=== PATIENT | female | born 1955 | race Caucasian/White ===

== ENCOUNTER 2019-09-22 19:58 | Inpatient (IN) | payer MEDICAID, SELFPAY ==
[~2019-09-22] VITALS: Ht 152.4 cm; Wt 65.3 kg
[2019-09-22 20:02] VITALS: BP 112/77
--- NOTE | 2019-09-22 20:05 | NUR ---
PT AMBULATED TO BED 12 WITH CANE
--- NOTE | 2019-09-22 20:30 | NUR ---
63 YEAR OLD FEMALE COMPLAINS OF POSSIBLE UTI. PER PATIENT SHE HAS HAD VAGINAL ITCHING, ODOR, AND FOAMY URINE X 2 WEEKS. PATIENT DENIES ANY PAIN. PATIENT AOX4, BREATHING EVEN AND UNLABORED, SKIN WARM AND DRY. PATIENT DENIES N/V/D OR ANY OTHER COMPLAINTS. BED IN LOWEST POSITION, LOCKED, BED RAIL UPX1. ERMD MADE AWARE PMH - DM2 ALLERGIES - NKA
[2019-09-22 21:03] LABS: HEMATOCRIT 33.7 % (36-48); HEMOGLOBIN 10.8 g/dL (12.0-16.0); MEAN CORPUSCULAR HEMOGLOBIN 29 pg (27-31); MEAN CORPUSCULAR HGB CONC 32 g/dL (33-37); MEAN CORPUSCULAR VOLUME 90.2 fL (80-94); PLATELET COUNT (AUTO) 399 K/uL (140-450); RED BLOOD CELL COUNT(AUTO) 3.74 MIL/uL (4.20-5.40); RED CELL DISTRIBUTION WIDTH 14.1 % (11.6-13.7)
[2019-09-22 21:10] LABS: APPEARANCE,URINE HAZY (CLEAR); BILIRUBIN,URINE NEGATIVE (NEGATIVE); BLOOD, URINE 2+ (NEGATIVE); COLOR,URINE YELLOW (YELLOW); LEUKOCYTE ESTERASE ,URINE TRACE (NEGATIVE); NITRITE, URINE POSITIVE (NEGATIVE); UGLUCOSE 3+ (NEGATIVE)
[2019-09-22 21:13] LABS: RBC,URINE 20-50 /HPF (0-5)
[2019-09-22] MEDS ORDERED: BACITRACIN OINT 500 UNITS/GM PKT TP ONE (21:15)
--- NOTE | 2019-09-22 21:18 | NUR ---
PATIENT ALERT AND AWAKE, BREATHING EVEN AND UNLABORED
[2019-09-22 21:21] LABS: ALBUMIN 1.7 g/dL (3.4-5.0); ANION GAP 12.5 (8-16); CARBON DIOXIDE 26.7 mmol/L (21-32); CREATININE 2.3 mg/dL (0.6-1.3); POTASSIUM 4.2 mmol/L (3.5-5.1); TOTAL BILIRUBIN 0.4 mg/dL (0.0-1.0)
[2019-09-22] MEDS ORDERED: NACL 0.9% 1,000 ML IV SCH (21:29)
[2019-09-22 21:51] LABS: LYMPHOCYTES % (MANUAL) 8 % (20-46); MONOCYTES % (MANUAL) 2 % (5-12)
[2019-09-22] MEDS ORDERED: cefTRIAXone 1,000 MG VIAL ONE (22:01)
[2019-09-22] MEDS ORDERED: cefTRIAXone 1,000 MG in DEXT 5% MINI-BAG PLUS 50 ML IV ONE (22:20)
--- NOTE | 2019-09-22 23:00 | NUR ---
PATIENT ALERT AND AWAKE, BREATHING EVEN AND UNLABORED. FIXED ARM POSITION SO IV SALINE WILL CONTINUE TO FLOW.
--- NOTE | 2019-09-23 00:06 | NUR ---
PATIENT ALERT AND AWAKE, BREATHING EVEN AND UNLABORED. WALKED TO BATHROOM WITH CANE EVEN AND STEADY GAIT.
[2019-09-23] MEDS ORDERED: VITAMIN D PO (00:24)
[2019-09-23] MEDS ORDERED: DULO20EC PO (00:24)
[2019-09-23] MEDS ORDERED: GABA100C PO (00:24)
[2019-09-23] MEDS ORDERED: ASPI-1884 PO (00:24)
[2019-09-23] MEDS ORDERED: HYDR-5092 PO (00:24)
[2019-09-23] MEDS ORDERED: QUET100T PO (00:24)
[2019-09-23] MEDS ORDERED: LAM25 PO (00:24)
--- NOTE | 2019-09-23 00:25 | NUR ---
CORONAVIRUS SWAB TAKEN
--- NOTE | 2019-09-23 00:44 | NUR ---
Gay boggs in ED - 09/23/19 at 0045 by [email or web address] PATIENT ALERT AND AWAKE, BREATHING EVEN AND UNLABORED. NACL FLUIDS 700ML GIVEN, ARM FIXED TO CORRECT IV FLUIDS TO KEEP GOING
--- NOTE | 2019-09-23 00:44 | NUR ---
PATIENT ALERT AND AWAKE, BREATHING EVEN AND UNLABORED. NACL FLUIDS 700ML GIVEN, ARM FIXED TO CORRECT IV FLUIDS TO KEEP GOING
[2019-09-23] MEDS: NACL 0.9% 1,000 ML IV SCH ×3 (00:54→20:54)
[2019-09-23] MEDS ORDERED: ONDANSETRON 4 MG/2 ML VIAL IVP PRN (00:55)
[2019-09-23] MEDS ORDERED: HYDROcodone/APAP 7.5/325 MG 1 TAB PO PRN (00:55)
[2019-09-23] MEDS ORDERED: DEXTROSE 50% 50 ML SYR IVP PRN (00:55)
[2019-09-23] MEDS ORDERED: ACETAMINOPHEN 325 MG TAB PO PRN (00:55)
--- NOTE | 2019-09-23 01:00 | NUR ---
PT WAS BROUGHT UP BY KATHY AND AMBULATED FORM KATHY TO BED IN ROOM 114. PT IS AOX3 WITH SKI INTACT, SHE IS ABLE TO AMBULATE BY USING HIS CANE . PT HAS A 22 G ON LEFT AC INTACT AND RUNNING A BOLUS FROM ER. PT RECEIVED ROCEPHIN AND STARTED A BOLUS OF FLUID. PT FINGERSTICK WAS OVER 700. PT DENIES PAIN AT THIS TIME. SHE WAS PLACED ON A FALLS RISK AND ON DROPLET PRECAUTIONS FOR R/O COVID 19.
--- NOTE | 2019-09-23 01:24 | NUR ---
PATIENT ALERT AND AWAKE, BREATHING EVEN AND UNLABORED. ADMITTED DR AT BEDSIDE
--- NOTE | 2019-09-23 01:30 | NUR ---
PT V/S FOLLOWS; T 97.6 P 71 R 18 B/P 105/73 02 92% ON ROOM AIR. PT HAS NO S/S OF PAIN OR DISTRESS NOTED. ALL FALLS AND DROPLET PRECAUTIONS IN PLACE.
--- NOTE | 2019-09-23 01:40 | NUR ---
Patient will be admitted to care of DR ROGERS. Admited to TELE. Will go to room 114. Belongings list completed. Report to YOEL ZELAYA.
[2019-09-23 01:43] LABS: PROTHROMBIN TIME 10.1 secs (10.8-13.4)
[2019-09-23 01:54] LABS: PHOSPHORUS 3.4 mg/dL (2.5-4.9); THYROID STIMULATING HORMONE 0.24 uIU/mL (0.34-3.74)
[2019-09-23] MEDS ORDERED: cefTRIAXone 1,000 MG VIAL ONE (03:17)
--- NOTE | 2019-09-23 03:30 | NUR ---
MD CAREY ORDERED A HUMULIN R DUE TO PT NOT RECEIVING ANY INSULIN IN ER. PT RECEIVED 20 UNITS HUMULIN R ORDERED VIA SQ.PT CURRENTLY RUNNING NORMAL SALINE AT 100MLS/HR. PT HAS NO C/O OF PAIN VOICED ADMISSION STRIP IS NSR.
[2019-09-23] MEDS ORDERED: INSULIN REGULAR, HUMAN 100 UNIT/ML VIAL SUBQ ONE (03:40)
[2019-09-23 04:00] VITALS: BP 104/62
[2019-09-23 04:30] VITALS: BP 105/73
--- NOTE | 2019-09-23 04:30 | NUR ---
PT IN BED NO S/S OF PAIN OR DISTRESS NOTED. V/S FOLLOWS: T 98.0 P 82 R 20 B/P 98/60 02 94% ON ROOM AIR. NORMAL SALINE RUNNING AT 100MLS/HR. ALL FALLS AND DROPLET PRECAUTIONS IN PLACE.
[2019-09-23] MEDS: INSULIN LISPRO SLIDING SCALE 100 UNITS/ML VIAL SUBQ PRN ×4 (06:30→21:37)
--- NOTE | 2019-09-23 06:30 | NUR ---
LAB DRAWS AT BEDSIDE, FINGERSTICK RETAKEN AND IT IS 248, SHE WAS GIVEN 4 UNITS OF HUMALOG PER SLIDING SCALE. SON MERI CALLED AND WAS UPDATED WITH PATENT'S PERMISSION.
[2019-09-23 06:51] LABS: BASOPHILS # (AUTO) 0.1 K/uL (0.00-0.22); BASOPHILS % (AUTO) 0.4 % (0.0-2.0); EOSINOPHILS # (AUTO) 0.2 K/uL (0-0.4); EOSINOPHILS % (AUTO) 1.1 % (0.0-4.0); HEMATOCRIT 32.6 % (36-48); HEMOGLOBIN 10.6 g/dL (12.0-16.0); LYMPHOCYTES # (AUTO) 1.5 K/uL (2.5-16.5); LYMPHOCYTES % (AUTO) 10.4 % (20.5-51.1); MEAN CORPUSCULAR HEMOGLOBIN 28 pg (27-31); MEAN CORPUSCULAR HGB CONC 33 g/dL (33-37); MONOCYTES # (AUTO) 0.6 K/uL (0.8-1.0); MONOCYTES % (AUTO) 3.9 % (1.7-9.3); NEUTROPHILS # (AUTO) 12.2 K/uL (1.8-7.7); NEUTROPHILS % (AUTO) 84.2 % (42.2-75.2); PLATELET COUNT (AUTO) 404 K/uL (140-450); RED BLOOD CELL COUNT(AUTO) 3.74 MIL/uL (4.20-5.40); RED CELL DISTRIBUTION WIDTH 13.8 % (11.6-13.7); WHITE BLOOD COUNT (AUTO) 14.5 K/uL (4.8-10.8)
[2019-09-23 07:26] LABS: ANION GAP 10.9 (8-16); CARBON DIOXIDE 27.8 mmol/L (21-32); CREATININE 1.6 mg/dL (0.6-1.3); POTASSIUM 3.7 mmol/L (3.5-5.1)
--- NOTE | 2019-09-23 07:35 | NUR ---
RECEIVED REPORT FROM NIGHT NURSE. PATIENT IS SLEEPING COMFORTABLY IN BED. CONTINUE ON RA. TELE PATIENT, SINUS RHYTHM NOTED. CALL LIGHT WITHIN REACH. WILL CONTINUE WITH CARE
[2019-09-23 07:39] LABS: CHOL/HDL RATIO 4.4 (1-4.5)
[2019-09-23] MEDS: BLOOD GLUCOSE MONITORING 1 DEV DEV FS SCH ×4 (07:49→21:29)
[2019-09-23 08:00] VITALS: BP 110/58
[2019-09-23] MEDS: DOCUSATE SODIUM 100 MG GELCAP PO SCH ×2 (08:47→21:31)
[2019-09-23] MEDS: ASPIRIN 81 MG TAB.CHEW PO SCH (08:47)
[2019-09-23] MEDS: FAMOTIDINE 20 MG TAB PO SCH (08:48)
--- NOTE | 2019-09-23 08:57 | NUR ---
PATIENT HAS BEEN SCREENED AND CATEGORIZED MODERATE NUTRITION RISK. PATIENT WILL BE SEEN WITHIN 3-5 DAYS OF ADMISSION. 09/25/19 09/27/[address]
[2019-09-23] MEDS ORDERED: DULoxetine 30 MG CAPDR PO SCH (09:00)
[2019-09-23] MEDS ORDERED: lamoTRIgine 25 MG TAB PO SCH (09:00)
--- NOTE | 2019-09-23 09:00 | NUR ---
MORNING MEDICATIONS GIVEN, PATIENT TOLERATED WELL. PATIENT RESTING COMFORTABLY IN BED, AWAKE AND ALERT. PATIENT DENIES OF ANY PAIN AT THIS TIME, NO NOTED DISTRESS. 94% ON RA. RELAXATION TECHNIQUES AND DEEP BREATHING/COUGH TAUGHT, PATIENT VERBALIZED UNDERSTANDING. CALL LIGHT WITHIN REACH, WILL CONTINUE WITH PLAN.
--- NOTE | 2019-09-23 10:25 | NUR ---
TOP PRECIPITATOR OPERATOR NOTE: Basic Screen: Yes High Risk DC Screen [place]ust[place]: OLGA WALKER Home Relationship: [id number] Pre-Admission Living Arrangements: Lives with Other Prior ADL Needs Assistance Current Home Health Name/Tel: N/A Current DME/02 Name/Tel: CANE, WALKER Current Hospice Name/Tel: N/A Current Dialysis Name/Tel: N/A Healthcare Decision Maker: Patient Advance Directive No Physician Orders for Life Sustaining Treatment Form No Patient/Family Have Educational Needs No Discipline: Case Mgt/Social Svcs Tentative Discharge Plan/Destination: No Needs Identified Will require assistance post discharge: No Referred to Wedding Photographer: No Tentative Discharge Plan Summary: PATIENT IS A 63-YEAR-OLD FEMALE ADMITTED FOR UTI AND HAS A PMHX OF DIABETES. PATIENT WAS ADMITTED FROM HOME WHERE SHE LIVES WITH HER DAUGHTER. EMILEE WAS UNABLE TO MEET PATIENT AT BEDSIDE TO VERIFY DEMOGRAPHICS. SW CONTACTED PATIENT'S UNTICDNI-RZ-ALY OLGA WALKER [phone]. PER OLGA, PATIENT IS INDEPENDENT WITH ALL ADLS EXCEPT FOR PREPARING MEALS, SOMETIMES TOILETING, AND TRANSPORTATION WITH PHYSICIAN APPOINTMENTS. OLGA STATED THAT SHE IS PATIENT'S SS CAREGIVER AND THAT PATIENT IS ALOTTED 30 HOURS A WEEK. OLGA REPORTED A HISTROY OF BIPOLAR DISORDER AND DEPRESSION. EMILEE OFFERED MENTAL HEALTH RESOURCES, BUT OLGA STATED THAT PATIENT RECEIVES MH SERVICES FROM [facility] WHERE SHE SEES BOTH A THERAPIST AND PSYCHIATRIST. OLGA REPORTS NO DRUG HISTORY FOR PATIENT. TENTATIVE DSICHARGE PLAN IS TO RETURN HOME. NO FURTHER NEEDS IDENTIFIED. Signature: IAN TORREZ Date: September 23, 2019 Time: 10:18
--- NOTE | 2019-09-23 11:08 | NUR ---
DC PLANNIN YRS OLD FEMALE PATIENT WAS ADMITTED FROM HOME WITH A DX OF UTI, DORIS AND HYPERGLYCEMIA. PT HAS A HX OF BIPOLAR DISORDER MAJOR DEPRESSIVE AND DM OUT OF CONTROL. BLOOD SUGAR WAS 760 ON ADMISSION ,SODIUM 117 ,BUN/CREATININE 33/2.3 AND 4+BACTERIA IN THE URINE. ADMINISTERED REGULAR INSULIN 20 UNITS , STARTED IVF AND IV ABX ROCEPHIN FOR UTI . CXR SHOWED MILD LEFT BASILAR ATELECTASIS ,RT MID LUNG PULMONARY MASS VERSUS MASSLIKE CONSOLIDATION. URINE AND BLOOD CULTURE PENDING. NEPHRO AND PULMO CONSULT. DC PLAN TO GO HOME WHEN PT IS STABLE CM TO FOLLOW. Addendum: 09/25/19 at 1155 by Carrie Sheehan CM DC PLANNING. COVID TEST NEGATIVE . ORDERED CT CHEST WITH CONTRAST TO FURTHER EVALUATE POSSIBLE MASS FOUND INCIDENTALLY ON CXR AND ULTRASOUND OF KIDNEY FOR BACK PAIN. CM TO FOLLOW Addendum: 09/26/19 at 1441 by Carrie Sheehan CM DC PLANNING: CALLED [facility] SHARLA KHAN NOTIFIED HER THAT PATIENT IS REQUIRED AN EXTENDED HOSPITAL STAY.STABLE TO BE TRANSFERRED TO THE CONTRACTED FACILITY. PER HUY WILL CONTACT VAIBHAV MAGDALENO AT [place] [id number] [phone] AND WILL CALL BACK Addendum: 09/26/19 at 1503 by Carrie Sheehan CM DC PLANNING: PER DR DIGGS PT MIGHT NEED CHEST TUBE , BUT WAITING FOR THE RADIOLOGIST TO CONFIRM WHERE THE FLUID IS. CALLED HUY MAGDALENO AT [facility] UPDATED HER THE CONDITION STATED TO UPDATE HER WITH THE DECISION. SHARLA TO FOLLOW. Addendum: 09/28/19 at 1455 by Sydnee Hernandez CM ON UNASYN. ON ROOM AIR. SPUTUM C/S STILL PENDING. Addendum: 09/29/19 at 1144 by Carrie Sheehan CM DC PLANNING: SEEN BY DR CARMINE DAVE SCHEDULE FOR BRONCHOSCOPY TODAY AND WILL NEED IMAGING IN 4-[address] SCAN TO EVAL FOR MALIGNANCY, CONTINUED WITH UNISON IV ABX. CM TO FOLLOW Addendum: 10/01/19 at 1122 by Carrie Sheehan CM DC PLANNING: RECEIVED A CALL FROM ROSSI MAGDALENO AT [facility], REGARDING THE DC PLAN FOR THE PATIENT. UPDATED THE CLINICALS AND AWAITING FOR THE CULTURE RESULT OF THE BRONCHIAL TO SEND PATIENT WITH IV ABX TO HOME HEALTH OR SNF. DC PLAN AWAITING FOR CULTURE RESULT. CM TO FOLLOW.
--- NOTE | 2019-09-23 11:45 | NUR ---
PT WAS GIVEN 2 UNITS INSULIN ON THE RT UA FOR BLOOD GLUCOSE OF 157, INSTRUCTIONS ON SAFETY AND ASSISTANCE IF NEEDED WERE GIVEN TO PT AND PT VERBALIZED UNDERSTANDING, PT WAS ASSISTED TO CLEAN UP WELL, NO SIGN OF DISTRESS NOTED AND WILL MONITOR PT.
[2019-09-23 12:00] VITALS: BP 119/74
[2019-09-23] MEDS ORDERED: FLUCONAZOLE 200 MG/NS PREMIX 100 ML IV SCH (13:43)
--- NOTE | 2019-09-23 14:03 | NUR ---
PT WAS GIVEN DIFLUCAN IVPB NOW, WILL MONITOR PT.
--- NOTE | 2019-09-23 15:31 | NUR ---
PATIENT IS SLEEPING COMFORTABLY IN BED. NO NOTED DISTRESS. PATIENT CONTINUES ON RA O2SAT 92%. CALL LIGHT WITHIN REACH. WILL CONTINUE WITH PLAN OF CARE.
[2019-09-23 16:00] VITALS: BP 153/95
--- NOTE | 2019-09-23 16:20 | NUR ---
PATIENT WAS GIVEN 2 UNITS OF HUMALOG SQ FOR BLOOD SUGAR OF 175. PATIENT IS ALERT AND C/O PAIN TO RIGHT LOWER FOOT. PATIENT GIVEN NORCO PRN ORDERED. IVF CONTINUES AT 100 ML/HR. WILL CONTINUE WITH PLAN OF CARE.
[2019-09-23] MEDS: HYDROcodone/APAP 10/325 MG 1 TAB TAB PO PRN (16:24)
--- NOTE | 2019-09-23 19:22 | NUR ---
ENDORSED TO NIGHT NURSE. PATIENT IS IN STABLE CONDITION.
--- NOTE | 2019-09-23 19:23 | NUR ---
RECEIVED ENDORSEMENT FROM AM SHIFT RN. PATIENT IS AOX4. ON RA. RESPIRATION EVEN AND UNLABORED. NO SOB. AMBULATES WITH CANE. IV SITE AT LAC 22G WITH NS IVF INFUSING. ISOLATION PRECAUTION OBSERVED AT ALL TIMES. PATIENT IS R/O COVID. PLAN OF CARE WAS DISCUSSED. CALL LIGHT WITHIN REACH. WILL CONTINUE TO MONITOR.
[2019-09-23 20:00] VITALS: BP 143/78
[2019-09-23] MEDS ORDERED: QUEtiapine FUMARATE 100 MG TAB PO SCH (21:00)
--- NOTE | 2019-09-23 21:00 | NUR ---
LAC IV SITE HAS LEAK. FLUSHED WITH NSS NOTED LEAKED. REMOVED LAC IV CANNULA AND WILL RE-INSERT.
--- NOTE | 2019-09-23 21:30 | NUR ---
RE-INSERTED A NEW IV SITE TO LEFT HAND 24G. ATTEMPTED X2 WITH GOOD BLOOD RETURN. TOLERATED PROCEDURE WELL. SECURED SITE.
--- NOTE | 2019-09-23 21:31 | NUR ---
DUE MED GIVEN ORDERED. TOLERATED WELL. MED EDUCATION PROVIDED. DENIES PAIN. NO SOB. CALL LIGHT WITHIN REACH. WILL CONTINUE TO MONITOR.
[2019-09-23] MEDS: QUEtiapine FUMARATE 100 MG TAB PO SCH (21:32)
[2019-09-23] MEDS: INSULIN LANTUS 100 UNITS/ML 10 ML VIAL SUBQ SCH (21:35)
[2019-09-24] VITALS: BP 114/61
--- NOTE | 2019-09-24 00:30 | NUR ---
V/S TAKEN AND RECORDED. DENIES PAIN. NO SOB. CALL LIGHT WITHIN REACH. WILL CONTINUE TO MONITOR.
[2019-09-24] MEDS: NACL 0.9% 1,000 ML IV SCH ×2 (03:33→23:40)
--- NOTE | 2019-09-24 03:34 | NUR ---
IVF CHANGED TO A NEW BAG. PATIENT IS ASLEEP AROUSABLE TO VERBAL. NO SOB. DENIES PAIN. WILL CONTINUE TO MONITOR.
[2019-09-24 04:00] VITALS: BP 146/81
[2019-09-24] MEDS: BLOOD GLUCOSE MONITORING 1 DEV DEV FS SCH ×4 (07:11→20:48)
--- NOTE | 2019-09-24 07:15 | NUR ---
PATIENT IS IN STABLE CONDITION. NO SOB. DENIES PAIN. ENDORSED TO AM SHIFT RN FOR CONTINUITY OF CARE.
[2019-09-24] MEDS: INSULIN LISPRO SLIDING SCALE 100 UNITS/ML VIAL SUBQ PRN ×3 (07:16→17:26)
--- NOTE | 2019-09-24 07:17 | NUR ---
RECEIVED BEDSIDE REPORT FROM AIR SAMPLER NURSE RYAN FOR CONTINUITY OF CARE. PT AWAKE AND RESTING ON BED AT THIS TIME. RESPIRATION EVEN AND UNLABORED ON RA. NO SIGNS OF DISTRESS NOTED. IV ON L HAND 24G, CLEAN AND INTACT, INFUSING NS AT 100 ML/HR. SKIN CLEAN AND DRY. PT IS AMBULATE WITH CANE. TELE MONITOR ATTACHED. ENHANCED PRECAUTION IN PLACE. SAFETY MEASURES IN PLACE. BED IN LOW POSITION AND CALL LIGHT WITHIN REACH.
[2019-09-24 07:36] LABS: BASOPHILS # (AUTO) 0.1 K/uL (0.00-0.22); BASOPHILS % (AUTO) 0.6 % (0.0-2.0); EOSINOPHILS # (AUTO) 0.1 K/uL (0-0.4); EOSINOPHILS % (AUTO) 1.1 % (0.0-4.0); HEMATOCRIT 32.1 % (36-48); HEMOGLOBIN 10.7 g/dL (12.0-16.0); LYMPHOCYTES # (AUTO) 1.2 K/uL (2.5-16.5); LYMPHOCYTES % (AUTO) 10.3 % (20.5-51.1); MEAN CORPUSCULAR HEMOGLOBIN 29 pg (27-31); MEAN CORPUSCULAR HGB CONC 33 g/dL (33-37); MEAN CORPUSCULAR VOLUME 87.3 fL (80-94); MONOCYTES # (AUTO) 0.5 K/uL (0.8-1.0); MONOCYTES % (AUTO) 4.6 % (1.7-9.3); NEUTROPHILS # (AUTO) 9.8 K/uL (1.8-7.7); NEUTROPHILS % (AUTO) 83.4 % (42.2-75.2); PLATELET COUNT (AUTO) 399 K/uL (140-450); RED BLOOD CELL COUNT(AUTO) 3.68 MIL/uL (4.20-5.40); RED CELL DISTRIBUTION WIDTH 13.7 % (11.6-13.7); WHITE BLOOD COUNT (AUTO) 11.7 K/uL (4.8-10.8)
[2019-09-24 07:45] LABS: ANION GAP 10.4 (8-16); CARBON DIOXIDE 27.5 mmol/L (21-32); CREATININE 1.2 mg/dL (0.6-1.3); MAGNESIUM 1.8 mg/dL (1.8-2.4); POTASSIUM 3.9 mmol/L (3.5-5.1)
[2019-09-24 08:00] VITALS: BP 126/62
[2019-09-24] MEDS: DULoxetine 30 MG CAPDR PO SCH (09:41)
[2019-09-24] MEDS: ASPIRIN 81 MG TAB.CHEW PO SCH (09:42)
[2019-09-24] MEDS: DOCUSATE SODIUM 100 MG GELCAP PO SCH ×2 (09:42→20:48)
[2019-09-24] MEDS: FAMOTIDINE 20 MG TAB PO SCH (09:42)
--- NOTE | 2019-09-24 09:59 | NUR ---
CHECKED BLOOD GLUCOSE PRIOR TO MED ADMINISTER, BG 178. ADMINISTERED SCHEDULED MEDS PER MD ORDER, MEDS EDUCATION PROVIDED AND PT TOLERATED PO MEDS WELL. PT AWAKE AND RESTING ON BED AT THIS TIME. DENIED PAIN, SOB AND DIZZINESS. NO SIGNS OF DISTRESS NOTED. TELE MONITOR ATTACHED. SAFETY MEASURES IN PLACE. BED IN LOW POSITION AND CALL LIGHT WITHIN REACH. BED LOCKED.
[2019-09-24] MEDS: INSULIN LANTUS 100 UNITS/ML 10 ML VIAL SUBQ SCH ×2 (10:00→20:54)
--- NOTE | 2019-09-24 11:58 | NUR ---
CHECKED BLOOD GLUCOSE AND RECEIVED 254, WILL ADMINISTER COVERAGE WHEN LUNCH ARRIVES. DR GONZALES IS TALKING TO PATIENT AT WINDOW. NO SIGNS OF DISTRESS NOTED. TELE MONITOR ATTACHED. SAFETY MEASURES IN PLACE.
[2019-09-24 12:00] VITALS: BP 133/68
--- NOTE | 2019-09-24 12:31 | NUR ---
PT RECEIVED LUNCH TRAY. ADMINISTERED HUMALOG 6 UNITS FOR 254 BLOOD GLUCOSE, MED ED PROVIDED AND PT TOLERATED SUBQ WELL. PT IS GETTING UP AND ABOUT TO EAT LUNCH. NO SIGNS OF DISTRESS NOTED. TELE MONITOR ATTACHED.
[2019-09-24] MEDS: traMADol 50 MG TAB PO PRN (13:12)
--- NOTE | 2019-09-24 13:19 | NUR ---
ANSWERED CALL LIGHT AND PT COMPLAINED OF PAIN ON LEG 5/10.MEDICATED WITH ULTRAM, MED ED PROVIDED AND PT SAID OK. PT IS RESTING ON BED AT THIS TIME. NO SIGNS OF ACUTE DISTRESS NOTED. TELE MONITOR ATTACHED. SAFETY MEASURES IN PLACE.
[2019-09-24] MEDS: HYDROcodone/APAP 10/325 MG 1 TAB TAB PO PRN (15:13)
--- NOTE | 2019-09-24 15:18 | NUR ---
ANSWERED PT'S CALL LIGHT AND COMPLAINED OF 6/10 PAIN ON LEG, MEDICATED WITH PRN NORCO, MED ED PROVIDED AND PT TOLERATED PO MED WELL. NO SIGNS OF ACUTE DISTRESS NOTED. TELE MONITOR ATTACHED. SAFETY MEASURES IN PLACE
[2019-09-24 16:00] VITALS: BP 117/58
--- NOTE | 2019-09-24 16:36 | NUR ---
RECEIVED A CALL FROM SON MERI, UPDATED MERI WITH PT'S CURRENT CONDITION AND MERI WAS AWARE.
--- NOTE | 2019-09-24 16:49 | NUR ---
VITAL SIGNS TAKEN, CHECKED BG AND RECEIVED 161,WILL ADMINISTER COVERAGE ONCE DINNER ARRIVES. PT IS RESTING ON BED AT THIS TIME. TELE MONITOR ATTACHED. SAFETY MEASURES IN PLACE.
--- NOTE | 2019-09-24 17:28 | NUR ---
DINNER ARRIVES, ADMINISTERED 2 UNIT OF HUMALOG FOR BG 161, MED EDU PROVIDED AND PT TOLERATED SUBQ WELL. PT IS READY FOR DINNER. NO SIGNS OF DISTRESS NOTED. TELE MONITOR ATTACHED. SAFETY MEASURES IN PLACE.
--- NOTE | 2019-09-24 19:19 | NUR ---
ENDORSED PT TO PROMOTION SPECIALIST NURSE FOR CONTINUITY OF CARE. PT IS IN STABLE CONDITION. TELE MONITOR ATTACHED. SAFETY MEASURES IN PLACE.
--- NOTE | 2019-09-24 19:20 | NUR ---
RECEIVED BEDSIDE REPORT FROM DAY SHIFT NURSEDEV FOR CONTINUITY OF CARE. PT AWAKE AND RESTING ON BED AT THIS TIME. RESPIRATION EVEN AND UNLABORED ON RA. NO SIGNS OF DISTRESS NOTED. IV ON L HAND 24G, PATENT, INTACT AND ASYMPTOMATIC. INFUSING NS AT 50 ML/HR. SKIN INTACT, WARM AND DRY TO TOUCH. PT IS AMBULATE WITH CANE. TELE MONITOR ATTACHED. ENHANCED PRECAUTION IN PLACE FOR R/O COVID. SAFETY MEASURES IN PLACE. BED IN LOW POSITION AND CALL LIGHT WITHIN REACH.
[2019-09-24 20:00] VITALS: BP 115/69
[2019-09-24] MEDS: QUEtiapine FUMARATE 100 MG TAB PO SCH (20:51)
--- NOTE | 2019-09-24 20:54 | NUR ---
GIVEN ROCEPHIN, COLACE, LAMICTAL, SEROQUEL AND HEPARIN. BS CHECKED, 143, GIVEN LANTUS MD ORDERED PT TOLERATED WELL.
--- NOTE | 2019-09-24 22:44 | NUR ---
PT SLEEPING IN BED. NO ACUTE DISTRESS NOTED.
[2019-09-25] VITALS: BP 110/69
--- NOTE | 2019-09-25 00:05 | NUR ---
VS WITHIN PT'S BASELINE. WILL CONTINUE TO MONITOR.
--- NOTE | 2019-09-25 01:22 | NUR ---
RECEIVED CALL FROM LAB FOR COVID19 NEGATIVE. REPORTED TO
--- NOTE | 2019-09-25 02:38 | NUR ---
Patient's Plan of Care was discussed and reviewed with CYBER SECURITY: BETTY MCLEOD Addendum: 09/25/19 at 0240 by Hattie Herron RN PT'S PLAN OF CARE WAS ..................................................W/CYBER SECURITY.BETTY MCLEOD.
[2019-09-25 04:00] VITALS: BP 90/50
--- NOTE | 2019-09-25 04:00 | NUR ---
VS CHECKED, WITHIN PT'S BASELINE. WILL CONTINUE TO MONITOR.
[2019-09-25] MEDS: INSULIN LISPRO SLIDING SCALE 100 UNITS/ML VIAL SUBQ PRN ×2 (05:56→20:31)
[2019-09-25] MEDS: BLOOD GLUCOSE MONITORING 1 DEV DEV FS SCH ×4 (05:56→20:33)
--- NOTE | 2019-09-25 05:56 | NUR ---
BS CHECKED, 155. ADMINISTER INSULIN MD ORDERED. PT TOLERATED WELL.
--- NOTE | 2019-09-25 07:15 | NUR ---
RECEIVED REPORT FROM NIGHT NURSE. PATIENT IN STABLE CONDITION. NO S/S OF DISTRESS NOTED. PLANS OF CARE DISCUSSED. CALL LIGHT WITHIN REACH. SAFETY MEASURES IN PLACE.
--- NOTE | 2019-09-25 07:30 | NUR ---
RECEIVED REPORT FROM GARCIA Zuniga. PT IN STABLE CONDITION, RESPIRATION EVEN AND UNLABORED. PT IS SR ON RADIOLOGY SPECIALIST,HR-91. IV INTACT AND PATENT. SAFETY MEASURES IN PLACED. BED IN LOW POSITION AND LOCKED. BED ALARM ON. CALL LIGHT WITHIN REACH. WILL CONTINUE TO MONITOR.
[2019-09-25 08:00] VITALS: BP 136/75
[2019-09-25 08:43] LABS: BASOPHILS # (AUTO) 0.1 K/uL (0.00-0.22); BASOPHILS % (AUTO) 0.6 % (0.0-2.0); EOSINOPHILS # (AUTO) 0.2 K/uL (0-0.4); EOSINOPHILS % (AUTO) 1.9 % (0.0-4.0); HEMATOCRIT 30.5 % (36-48); HEMOGLOBIN 10.1 g/dL (12.0-16.0); LYMPHOCYTES # (AUTO) 1.2 K/uL (2.5-16.5); LYMPHOCYTES % (AUTO) 10.9 % (20.5-51.1); MEAN CORPUSCULAR HEMOGLOBIN 29 pg (27-31); MEAN CORPUSCULAR HGB CONC 33 g/dL (33-37); MEAN CORPUSCULAR VOLUME 87.5 fL (80-94); MONOCYTES # (AUTO) 0.6 K/uL (0.8-1.0); MONOCYTES % (AUTO) 5.5 % (1.7-9.3); NEUTROPHILS # (AUTO) 8.7 K/uL (1.8-7.7); NEUTROPHILS % (AUTO) 81.1 % (42.2-75.2); PLATELET COUNT (AUTO) 379 K/uL (140-450); RED BLOOD CELL COUNT(AUTO) 3.49 MIL/uL (4.20-5.40); RED CELL DISTRIBUTION WIDTH 13.9 % (11.6-13.7); WHITE BLOOD COUNT (AUTO) 10.7 K/uL (4.8-10.8)
[2019-09-25 09:10] LABS: CARBON DIOXIDE 29.2 mmol/L (21-32); CREATININE 1.1 mg/dL (0.6-1.3); POTASSIUM 4.2 mmol/L (3.5-5.1)
--- NOTE | 2019-09-25 09:30 | NUR ---
ORDERED MEDS GIVEN TO THE PT AND TOLERATED IT WELL. NO C/O PAIN AT THIS TIME. PT OFF COVID ISOLATION NOW. KIDNEY ULTRASOUND BEING DONE AT THE BEDSIDE. CALL LIGHT WITHIN REACH. WILL CONTINUE TO MONITOR.
[2019-09-25] MEDS: DULoxetine 30 MG CAPDR PO SCH (09:50)
[2019-09-25] MEDS: DOCUSATE SODIUM 100 MG GELCAP PO SCH ×2 (09:50→20:19)
[2019-09-25] MEDS: ASPIRIN 81 MG TAB.CHEW PO SCH (09:50)
[2019-09-25] MEDS: FAMOTIDINE 20 MG TAB PO SCH (09:51)
[2019-09-25] MEDS: INSULIN LANTUS 100 UNITS/ML 10 ML VIAL SUBQ SCH ×2 (09:56→20:30)
--- NOTE | 2019-09-25 10:50 | NUR ---
CONSENT SIGNED FOR CT CHEST WITH CONTRAST. ULTRASOUND AT BEDSIDE AT THIS TIME. PATIENT IN STABLE CONDITION.
[2019-09-25 12:00] VITALS: BP 142/83
--- NOTE | 2019-09-25 13:00 | NUR ---
PT AWAITING FOR CT OF THE CHEST WITH CONTRAST. PLACED ANOTHER IV ON THE RIGHT AC 18 GAUGE. WILL CONTINUE POC. CALL LIGHT WITHIN REACH.
[2019-09-25] MEDS ORDERED: LORazepam 2 MG/ML VIAL IM/IVP PRN (13:45)
--- NOTE | 2019-09-25 15:00 | NUR ---
INFLUENZA SWAB DONE ORDERED AND SENT TO THE LAB. CALL LIGHT WITHIN REACH. WILL CONTINUE TO MONITOR.
[2019-09-25 16:00] VITALS: BP 129/79
--- NOTE | 2019-09-25 16:20 | NUR ---
OFF UNIT FOR CT SCAN WITH CONTRAST. PATIENT IN STABLE CONDITION.
--- NOTE | 2019-09-25 18:00 | NUR ---
ASSISTED PATIENT WITH CALLING DAUGHTER IN-LAW OLGA .
--- NOTE | 2019-09-25 19:20 | NUR ---
RECEIVED REPORT FROM DAY SHIFT NURSE. PATIENT AWAKE, ALERT, ORIENTED. PATIENT SITTING ON BED. RESPIRATIONS EVEN AND UNLABORED. WITH IV INTACT AND PATIENT WITH IVF INFUSING WELL. DENIES PAIN AT THIS TIME. SAFETY MEASURES IN PLACE. REVIEWED PLAN OF CARE. TO PATIENT. VERBALIZED UNDERSTANDING CALL LIGHT WITHIN REACH. WILL CONTINUE TO MONITOR.
--- NOTE | 2019-09-25 19:30 | NUR ---
GAVE REPORT TO AEROSPACE TECHNICIAN NURSE KISSDIONISIO FOR CONTINUITY OF CARE. PATIENT IN STABLE CONDITION.
[2019-09-25] MEDS: NACL 0.9% 1,000 ML IV SCH (19:40)
[2019-09-25 20:00] VITALS: BP 149/84
[2019-09-25] MEDS: QUEtiapine FUMARATE 100 MG TAB PO SCH (20:19)
[2019-09-25] MEDS: HYDROcodone/APAP 10/325 MG 1 TAB TAB PO PRN (20:20)
--- NOTE | 2019-09-25 20:20 | NUR ---
SCHEDULED DUE MEDICATIONS GIVEN. PATIENT COMPLAINED OF LEG PAIN. MEDICATED WITH NORCO. CALL LIGHT WITHIN REACH. WILL CONTINUE TO MONITOR.
[2019-09-25] MEDS ORDERED: ZOLPIDEM 5 MG TAB PO PRN (21:40)
--- NOTE | 2019-09-25 22:35 | NUR ---
PATIENT SLEEPING COMFORTABLY. CALL LIGHT WITHIN REACH. WILL CONTINUE TO MONITOR PATIENT.
[2019-09-26] VITALS: BP 103/59
--- NOTE | 2019-09-26 01:51 | NUR ---
PATIENT SLEEPING COMFORTABLY. WILL CONTINUE TO MONITOR PATIENT.
[2019-09-26 04:00] VITALS: BP 95/53
--- NOTE | 2019-09-26 04:08 | NUR ---
PATIENT STILL ASLEEP. NO DISTRESS NOTED. WILL CONTINUE TO MONITOR PATIENT.
[2019-09-26] MEDS: HYDROcodone/APAP 10/325 MG 1 TAB TAB PO PRN ×2 (06:24→12:31)
--- NOTE | 2019-09-26 06:24 | NUR ---
PATIENT COMPLAINED OF LEG PAIN. MEDICATED WITH NORCO. WILL CONTINUE TO MONITOR PATIENT.
[2019-09-26] MEDS: BLOOD GLUCOSE MONITORING 1 DEV DEV FS SCH ×4 (06:31→21:25)
--- NOTE | 2019-09-26 07:20 | NUR ---
PATIENT IS STABLE. ENDORSED PATIENT TO DAY SHIFT NURSE FOR CONTINUITY OF CARE.
--- NOTE | 2019-09-26 07:25 | NUR ---
RECEIVED PT FROM RECEPTIONIST TELEPHONE OPERATOR NURSES, JONATAN, PT IS AWAKE AND LYING ON THE BED, CANE USED TO AMBULATE ON THE BEDSIDE, PERIPHERAL LINE WERE INTACT ON THE RT AC G.22 WITH IVF NS INFUSING AT 50ML/HR AND ON THE LEFT HAND G. 24 ON SALINE LOCK, SIDE RAILS ARE UP AND CALL LIGHT WITHIN REACH, FALL PRECAUTION INITIATED, ON STANDARD PRECAUTION, PT IS ON ROOM AIR AND NO SIGN OF DISTRESS NOTED, WILL CONTINUE TO MONITOR PT.
[2019-09-26 08:00] VITALS: BP 93/55
[2019-09-26] MEDS: DOCUSATE SODIUM 100 MG GELCAP PO SCH ×2 (09:08→20:46)
[2019-09-26] MEDS: FAMOTIDINE 20 MG TAB PO SCH (09:09)
[2019-09-26] MEDS: LACTOBACILLUS RHAMNOSUS GG 1 EACH CAP PO SCH (09:10)
[2019-09-26] MEDS: DULoxetine 30 MG CAPDR PO SCH (09:10)
--- NOTE | 2019-09-26 09:10 | NUR ---
PT WAS GIVEN THE SCHEDULED AM MEDICATIONS VIA ORAL, IVPB AND SUBQ ROUTES, BS CHECKED DONE AND IS 206, 15 UNITS LANTUS GIVEN ON THE RT UA, PT TOLERATED AND WILL MONITOR PT.
[2019-09-26] MEDS: ASPIRIN 81 MG TAB.CHEW PO SCH (09:11)
[2019-09-26] MEDS: INSULIN LANTUS 100 UNITS/ML 10 ML VIAL SUBQ SCH ×2 (09:20→20:50)
--- NOTE | 2019-09-26 09:35 | NUR ---
TRANSFERRED PATIENT TO ROOM 108B. PATIENT IS STABLE AT THIS TIME. ENCOURAGED TO PROVIDE SPUTUM CULTURE. CALL LIGHT IN PLACE.
--- NOTE | 2019-09-26 09:40 | NUR ---
PT WAS INSTRUCTED THAT SPUTUM SAMPLE IS NEEDED AND WAS TAUGHT REGARDING HOW TO EXPECTORATE A SPUTUM AND PT VERBALIZED UNDERSTANDING.
[2019-09-26 12:00] VITALS: BP 109/57
[2019-09-26] MEDS: INSULIN LISPRO SLIDING SCALE 100 UNITS/ML VIAL SUBQ PRN ×3 (12:03→20:49)
--- NOTE | 2019-09-26 12:03 | NUR ---
PT WAS GIVEN INSULIN 2 JUNITS FOR BLOOD GLUCOSE OF 191 ON THE LEFT UA, WILL MONITOR PT.
[2019-09-26] MEDS: PIPERACILLIN/TAZOBACTAM 3.375 GM in DEXTROSE 5% 50 ML IV SCH ×2 (12:22→17:21)
--- NOTE | 2019-09-26 12:22 | NUR ---
PT WAS GIVEN IV ZOSYN IVPB, WILL MONITOR PT.
[2019-09-26] MEDS: traMADol 50 MG TAB PO PRN (15:18)
--- NOTE | 2019-09-26 15:20 | NUR ---
PATIENT C/O CRAMPS TO BOTH CALVES, PATIENT HAD BEEN MOVING IN BED AND GETTING UP TO THE BATHROOM TODAY X2. PATIENT ENCOURAGED TO PERFORM PASSIVE ROM WHILE IN BED AND GETTING UP MORE. PATIENT VERBALIZED UNDERSTANDING. GIVEN TRAMADOL FOR BREAKTHROUGH PAIN. WILL REASSESS FOR EFFECTIVENESS.
--- NOTE | 2019-09-26 15:39 | NUR ---
09/26/19 RD INITIAL ASSESSMENT COMPLETED PLEASE REFER TO NUTRITION ASSESSMENT UNDER CARE ACTIVITY FOR ESTIMATED NUTRITIONAL NEEDS. 1. RECOMMEND MECHANICAL SOFT CCHO 60GM DIET TOLERATED 2. RD PROVIDED NUTRITION EDUCATION ON DIABETES 3. RD TO FOLLOW-UP 3-5 DAYS, MODERATE RISK CASA HANNA RD
[2019-09-26] MEDS: NACL 0.9% 1,000 ML IV SCH (15:43)
[2019-09-26] MEDS ORDERED: MAGNESIUM OXIDE 400 MG TAB PO SCH (15:47)
[2019-09-26 16:00] VITALS: BP 136/73
[2019-09-26] MEDS ORDERED: FLUCONAZOLE 100 MG TAB PO SCH (18:49)
--- NOTE | 2019-09-26 19:00 | NUR ---
PATIENT ENDORSED TO GROVE WORKER NURSE. PATIENT WAS HAVING OF SLIGHT CHEST CONGESTION AND COUGHINGS. RT WAS CALLED. PATIENT WAS ENCOURAGED DEEP BREATHING. RT ASSESSED PATIENT AND RECOMMENDED BREATHING TREATMENT PRN. IN HOUSE RESIDENT DR ROMANO WAS MADE AWARE.
--- NOTE | 2019-09-26 19:15 | NUR ---
RECEIVED REPORT FROM DAY SHIFT NURSE. AWAKE, ALERT AND ORIENTED. PATIENT WAS HAVING OF SLIGHT CHEST CONGESTION AND COUGHINGS. RT WAS CALLED. PATIENT WAS ENCOURAGED DEEP BREATHING. PATIENT ON O2 @ 2LPM. WITH IV PATENT AND INTACT WITH IVF INFUSING WELL. SKIN INTACT. AMBULATES WITH CANE. REVIEWED PLAN OF CARE TO THE PATIENT. SAFETY MEASURES IN PLACE. CALL LIGHT WITHIN REACH. WILL CONTINUE TO MONITOR PATIENT.
--- NOTE | 2019-09-26 19:27 | NUR ---
called to bedside by kiki kumar i arrived roughly 1911 pt has intermitted cough coughed up small amt garcia secretions pt has crackles at bases course through out and slight insp wheeze pt sat 96% hr [address] mercado was informed roughly 1919
[2019-09-26 20:00] VITALS: BP 155/75
[2019-09-26] MEDS ORDERED: ALBUTEROL SULFATE/IPRATROPIU 3 ML SOL IH PRN (20:00)
[2019-09-26] MEDS: QUEtiapine FUMARATE 100 MG TAB PO SCH (20:46)
--- NOTE | 2019-09-26 20:46 | NUR ---
ALL SCHEDULED MEDICATIONS GIVEN. SAFETY MEASURES IN PLACE. WILL CONTINUE TO MONITOR.
--- NOTE | 2019-09-26 23:00 | NUR ---
PATIENT RESTING ON BED WATCHING TV ON BED. NO SIGNS OF DISTRESS. CALL LIGHT WITHIN REACH. WILL CONTINUE TO MONITOR.
[2019-09-26] MEDS: AMPICILLIN/SULBACTAM 3 GM in NACL 0.9% 100 ML IV SCH (23:41)
[2019-09-27] VITALS: BP 103/71
--- NOTE | 2019-09-27 02:05 | NUR ---
PATIENT IS SLEEPING COMFORTABLY. NO SIGNS OF DISTRESS NOTED. CALL LIGHT WITHIN REACH. WILL CONTINUE TO MONITOR.
[2019-09-27 04:00] VITALS: BP 133/73
--- NOTE | 2019-09-27 04:39 | NUR ---
PATIENT STILL SLEEPING COMFORTABLY. NO SIGNS OF DISTRESS NOTED. SAFETY MEASURES IN PLACE. CALL LIGHT WITHIN REACH. WILL CONTINUE TO MONITOR PATIENT.
[2019-09-27] MEDS: HYDROcodone/APAP 10/325 MG 1 TAB TAB PO PRN ×3 (05:35→19:48)
--- NOTE | 2019-09-27 05:35 | NUR ---
PATIENT COMPLAINED OF RIGHT FOOT PAIN 6/10 RADIATING TO HER LEG. MEDICATED PATIENT WITH NORCO PER ORDER. WILL REASSESS PATIENT AND TO CONTINUE TO MONITOR.
[2019-09-27] MEDS: AMPICILLIN/SULBACTAM 3 GM in NACL 0.9% 100 ML IV SCH ×4 (05:36→23:17)
[2019-09-27] MEDS: BLOOD GLUCOSE MONITORING 1 DEV DEV FS SCH ×4 (06:24→20:24)
--- NOTE | 2019-09-27 07:16 | NUR ---
PT IS STABLE. GAVE REPORT TO DAY SHIFT NURSE FOR CONTINUITY OF CARE.
--- NOTE | 2019-09-27 07:20 | NUR ---
RECEIVED REPORT FROM CORRESPONDENT NURSE MEMO-GARCIA. PT RESTING IN BED, AOX4, ON 2L/NC WITH RIGHT AC #22G RUNNING NS @ 50ML/HR. USES CANE TO AMBULATE. DISCUSSED PLAN OF CARE AND PT VERBALIZED UNDERSTANDING. NO S/S OF RESPIRATORY DISTRESS OR DISCOMFORT NOTED AT THIS TIME. WILL CONTINUE TO MONITOR.
[2019-09-27 07:53] LABS: BASOPHILS # (AUTO) 0.1 K/uL (0.00-0.22); BASOPHILS % (AUTO) 1.4 % (0.0-2.0); EOSINOPHILS # (AUTO) 0.1 K/uL (0-0.4); EOSINOPHILS % (AUTO) 1.7 % (0.0-4.0); HEMATOCRIT 29.6 % (36-48); HEMOGLOBIN 9.8 g/dL (12.0-16.0); LYMPHOCYTES # (AUTO) 1.4 K/uL (2.5-16.5); LYMPHOCYTES % (AUTO) 16.6 % (20.5-51.1); MEAN CORPUSCULAR HEMOGLOBIN 29 pg (27-31); MEAN CORPUSCULAR HGB CONC 33 g/dL (33-37); MONOCYTES # (AUTO) 0.4 K/uL (0.8-1.0); MONOCYTES % (AUTO) 5.1 % (1.7-9.3); NEUTROPHILS # (AUTO) 6.5 K/uL (1.8-7.7); NEUTROPHILS % (AUTO) 75.2 % (42.2-75.2); PLATELET COUNT (AUTO) 442 K/uL (140-450); RED BLOOD CELL COUNT(AUTO) 3.36 MIL/uL (4.20-5.40); RED CELL DISTRIBUTION WIDTH 14.2 % (11.6-13.7); WHITE BLOOD COUNT (AUTO) 8.6 K/uL (4.8-10.8)
[2019-09-27 08:00] VITALS: BP 130/70
[2019-09-27 08:19] LABS: ANION GAP 9.3 (8-16); CARBON DIOXIDE 29.9 mmol/L (21-32); CREATININE 1.2 mg/dL (0.6-1.3); POTASSIUM 4.2 mmol/L (3.5-5.1)
[2019-09-27] MEDS: DOCUSATE SODIUM 100 MG GELCAP PO SCH ×2 (09:39→20:17)
[2019-09-27] MEDS: ASPIRIN 81 MG TAB.CHEW PO SCH (09:39)
[2019-09-27] MEDS: DULoxetine 30 MG CAPDR PO SCH (09:40)
[2019-09-27] MEDS: LACTOBACILLUS RHAMNOSUS GG 1 EACH CAP PO SCH (09:40)
[2019-09-27] MEDS: FAMOTIDINE 20 MG TAB PO SCH (09:41)
[2019-09-27] MEDS: INSULIN LANTUS 100 UNITS/ML 10 ML VIAL SUBQ SCH (09:43)
--- NOTE | 2019-09-27 09:43 | NUR ---
SCHEDULED MEDICATIONS GIVEN AND TOLERATED WELL. NO S/S OF RESPIRATORY DISTRESS OR DISCOMFORT NOTED AT THIS TIME. WILL CONTINUE TO MONITOR.
--- NOTE | 2019-09-27 11:30 | NUR ---
BLOOD GLUCOSE 161- WILL ADMINISTER INSULIN COVERAGE.
[2019-09-27] MEDS: NACL 0.9% 1,000 ML IV SCH ×2 (11:40→17:32)
[2019-09-27 12:00] VITALS: BP 129/68
[2019-09-27] MEDS: INSULIN LISPRO SLIDING SCALE 100 UNITS/ML VIAL SUBQ PRN (12:27)
--- NOTE | 2019-09-27 12:27 | NUR ---
SCHEDULED MEDICATION UNASYN GIVEN AND TOLERATED WELL. NO S/S OF RESPIRATORY DISTRESS OR DISCOMFORT NOTED AT THIS TIME. WILL CONTINUE TO MONITOR.
--- NOTE | 2019-09-27 12:28 | NUR ---
INSULIN COVERAGE GIVEN AND TOLERATED WELL. PT REQUESTING NORCO FOR PAIN 10/21. NORCO GIVEN AND TOLERATED WELL. NO S/S OF RESPIRATORY DISTRESS OR DISCOMFORT NOTED AT THIS TIME. WILL CONTINUE TO MONITOR.
--- NOTE | 2019-09-27 14:30 | NUR ---
PT RESTING IN BED. NO S/S OF RESPIRATORY DISTRESS OR DISCOMFORT NOTED AT THIS TIME. WILL CONTINUE TO MONITOR.
[2019-09-27] MEDS ORDERED: INSULIN LANTUS 100 UNITS/ML 10 ML VIAL SUBQ SCH (15:30)
[2019-09-27 16:00] VITALS: BP 162/88
--- NOTE | 2019-09-27 16:30 | NUR ---
BLOOD GLUCOSE 84- NO INSULIN COVERAGE NEEDED.
--- NOTE | 2019-09-27 17:34 | NUR ---
SCHEDULED MEDICATIONS GIVEN AND TOLERATED WELL. NO S/S OF RESPIRATORY DISTRESS OR DISCOMFORT NOTED AT THIS TIME. WILL CONTINUE TO MONITOR.
--- NOTE | 2019-09-27 19:10 | NUR ---
RECEIVED PATIENT IN STABLE CONDITION FROM AM SHIFT NURSE FOR CONTINUITY OF CARE. RESPIRATIONS EVEN, UNLABORED. CONTINUES ON O2 2L VIA NC. SKIN WARM, DRY. IV SITE NOTED TO RIGHT AC 22G PATENT/INTACT, INFUSING FLUIDS WELL. SALINE LOCK TO LEFT HAND 24G PATENT/INTACT. NO C/O PAIN. NO S/S ACUTE DISTRESS. CALL LIGHT WITHIN REACH. WILL CONTINUE TO MONITOR.
[2019-09-27 20:00] VITALS: BP 138/95
[2019-09-27] MEDS: QUEtiapine FUMARATE 100 MG TAB PO SCH (20:17)
--- NOTE | 2019-09-27 20:48 | NUR ---
REASSESSED PATIENT'S PAIN LEVEL AT 2/10, TOLERABLE PAIN LEVEL. CALL LIGHT WITHIN REACH. WILL CONTINUE TO MONITOR.
--- NOTE | 2019-09-27 21:30 | NUR ---
PATIENT C/O ACHING BILATERAL LEG PAIN 10/21. MEDICATED ORDERED. CALL LIGHT WITHIN REACH. WILL CONTINUE TO MONITOR. Addendum: 09/27/19 at 1 by Shanta Hayden RN AMEND TIME TO 1947.
--- NOTE | 2019-09-27 23:05 | NUR ---
PATIENT TALKING ON PHONE WITH FAMILY. CONTINUES IN STABLE CONDITION. NO C/O PAIN. NO S/S ACUTE DISTRESS. CALL LIGHT WITHIN REACH. WILL CONTINUE TO MONITOR.
[2019-09-28] VITALS: BP 153/83
--- NOTE | 2019-09-28 01:05 | NUR ---
MADE ROUNDS. PATIENT IS ASLEEP. CONTINUES IN STABLE CONDITION. NO S/S ACUTE DISTRESS. CALL LIGHT WITHIN REACH. WILL CONTINUE TO MONITOR.
--- NOTE | 2019-09-28 03:08 | NUR ---
PATIENT IS ASLEEP. CONTINUES IN STABLE CONDITION. NO S/S ACUTE DISTRESS. CALL LIGHT WITHIN REACH. WILL CONTINUE TO MONITOR.
[2019-09-28 04:00] VITALS: BP 136/82
[2019-09-28] MEDS: HYDROcodone/APAP 10/325 MG 1 TAB TAB PO PRN ×2 (04:44→12:50)
--- NOTE | 2019-09-28 04:44 | NUR ---
PATIENT C/O BILATERAL LOWER EXTREMITY PAIN 10/21. MEDICATED ORDERED. WILL CONTINUE TO MONITOR.
[2019-09-28] MEDS: AMPICILLIN/SULBACTAM 3 GM in NACL 0.9% 100 ML IV SCH ×4 (05:44→23:25)
--- NOTE | 2019-09-28 05:44 | NUR ---
REASSESSED PAIN LEVEL 0/10, PATIENT IS ASLEEP. CALL LIGHT WITHIN REACH. WILL CONTINUE TO MONITOR.
--- NOTE | 2019-09-28 07:25 | NUR ---
RECEIVED REPORT FROM NIGHT NURSE. PATIENT IN BED, ASLEEP, EASILY AROUSABLE BY NAME OR TOUCH. SKIN WARM AND DRY TOUCH. RESPIRATION EVEN AND UNLABORED. IV INTACT AND PATENT TO RIGHT AC AND LEFT HAND. O2 ON @ 2L NC. NO S/S OF DISTRESS NOTED. CALL LIGHT WITHIN REACH. SAFETY MEASURES IN PLACE.
[2019-09-28] MEDS: BLOOD GLUCOSE MONITORING 1 DEV DEV FS SCH ×4 (07:45→20:13)
[2019-09-28 08:00] VITALS: BP 139/76
--- NOTE | 2019-09-28 09:30 | NUR ---
ROUNDS MADE. PATIENT AWAKE, ALERT AND ORIENTED X4. DENIES ANY SOB OR DISCOMFORT. O2 ON @2L VIA NC. NO S/S OF DISTRESS NOTED. CALL LIGHT WITHIN REACH.
[2019-09-28 10:33] LABS: BASOPHILS # (AUTO) 0.1 K/uL (0.00-0.22); BASOPHILS % (AUTO) 1.5 % (0.0-2.0); EOSINOPHILS # (AUTO) 0.3 K/uL (0-0.4); EOSINOPHILS % (AUTO) 4.2 % (0.0-4.0); HEMATOCRIT 32.2 % (36-48); HEMOGLOBIN 10.6 g/dL (12.0-16.0); LYMPHOCYTES # (AUTO) 1.8 K/uL (2.5-16.5); LYMPHOCYTES % (AUTO) 23.1 % (20.5-51.1); MEAN CORPUSCULAR HEMOGLOBIN 29 pg (27-31); MEAN CORPUSCULAR HGB CONC 33 g/dL (33-37); MEAN CORPUSCULAR VOLUME 88.7 fL (80-94); MONOCYTES # (AUTO) 0.3 K/uL (0.8-1.0); MONOCYTES % (AUTO) 4.5 % (1.7-9.3); NEUTROPHILS # (AUTO) 5.2 K/uL (1.8-7.7); NEUTROPHILS % (AUTO) 66.7 % (42.2-75.2); PLATELET COUNT (AUTO) 460 K/uL (140-450); RED BLOOD CELL COUNT(AUTO) 3.64 MIL/uL (4.20-5.40); RED CELL DISTRIBUTION WIDTH 13.9 % (11.6-13.7); WHITE BLOOD COUNT (AUTO) 7.7 K/uL (4.8-10.8)
[2019-09-28] MEDS: LACTOBACILLUS RHAMNOSUS GG 1 EACH CAP PO SCH (10:57)
[2019-09-28] MEDS: DOCUSATE SODIUM 100 MG GELCAP PO SCH ×2 (10:57→20:05)
[2019-09-28] MEDS: DULoxetine 30 MG CAPDR PO SCH (10:58)
[2019-09-28] MEDS: FAMOTIDINE 20 MG TAB PO SCH (11:02)
[2019-09-28] MEDS: ASPIRIN 81 MG TAB.CHEW PO SCH (11:02)
[2019-09-28 11:27] LABS: ANION GAP 6.7 (8-16); CARBON DIOXIDE 32.6 mmol/L (21-32); CREATININE 1.2 mg/dL (0.6-1.3); POTASSIUM 4.3 mmol/L (3.5-5.1)
--- NOTE | 2019-09-28 11:30 | NUR ---
PATIENT AMBULATES TO THE RESTROOM WITH CANE. PATIENT AAOX4. NO S/S OF DISTRESS NOTED.
[2019-09-28 11:31] LABS: MAGNESIUM 1.8 mg/dL (1.8-2.4); PHOSPHORUS 4.3 mg/dL (2.5-4.9)
[2019-09-28 12:00] VITALS: BP 159/88
[2019-09-28] MEDS: INSULIN LISPRO SLIDING SCALE 100 UNITS/ML VIAL SUBQ PRN ×2 (12:18→20:11)
--- NOTE | 2019-09-28 13:30 | NUR ---
PATIENT IS AWAKE, WATCHING TV. NO S/S OF DISTRESS NOTED. CALL LIGHT WITHIN REACH.
--- NOTE | 2019-09-28 15:20 | NUR ---
ROUNDS MADE. PATIENT ASLEEP, ABLE TO WAKE BY NAME OR TOUCH. O2 ON @2L VIA NC. NO S/S OF DISTRESS NOTED. CALL LIGHT WITHIN REACH.
[2019-09-28 16:00] VITALS: BP 126/89
[2019-09-28] MEDS: traMADol 50 MG TAB PO PRN (18:16)
--- NOTE | 2019-09-28 18:45 | NUR ---
PATIENT REMAINS STABLE. NO S/S OF DISTRESS NOTED. WILL ENDORSE TO NIGHT NURSE FOR CONTINUITY OF CARE.
--- NOTE | 2019-09-28 19:20 | NUR ---
RECEIVED REPORT FROM DAY SHIFT NURSE. PATIENT ON BED, ALERT AND ORIENTED X 4. ON O2 @ 2 LPM VIA NASAL CANNULA. RESPIRATIONS EVEN AND UNLABORED. SKIN INTACT. PATIENT AMBULATES WITH CANE. REVIEWED PLAN OF CARE TO PATIENT, VERBALIZED UNDERSTANDING. SAFETY MEASURES IN PLACE. CALL LIGHT WITHIN REACH. WILL CONTINUE TO MONITOR PATIENT.
--- NOTE | 2019-09-28 19:20 | NUR ---
REPORT GIVEN TO NIGHT NURSE FOR CONTINUITY OF CARE. PATIENT IN STABLE CONDITION.
[2019-09-28 20:00] VITALS: BP_SYST 156; BP_SYST 189; BP_DIAS 87
[2019-09-28] MEDS: QUEtiapine FUMARATE 100 MG TAB PO SCH (20:06)
--- NOTE | 2019-09-28 20:06 | NUR ---
ALL SCHEDULED DUE MEDICATIONS GIVEN. SAFETY MEASURES IN PLACE. WILL CONTINUE TO MONITOR PATIENT.
--- NOTE | 2019-09-28 20:22 | NUR ---
RECEIVED PATIENT ON 2L NASAL CANNULA, PULSE OX SAT 97%. PT DENIES SOB. REFUSED PRN TX AT THIS TIME. PT MADE AWARE OF ORDERED MEDICATION FREQUENCY AND INSTRUCTED TO CALL NEEDED FOR SOB. NO ACUTE RESPIRATORY DISTRESS NOTED. WILL CONTINUE TO MONITOR.
[2019-09-28] MEDS ORDERED: INSULIN LANTUS 100 UNITS/ML 10 ML VIAL SUBQ SCH (21:00)
[2019-09-28] MEDS: NACL 0.9% 1,000 ML IV SCH (23:25)
--- NOTE | 2019-09-28 23:25 | NUR ---
SCHEDULED IV ANTIBIOTIC MEDICATION GIVEN. PATIENT IS SLEEPING COMFORTABLY. NO SIGNS OF DISTRESS NOTED. WILL CONTINUE TO MONITOR PATIENT.
[2019-09-29] VITALS: BP 153/83
[2019-09-29] MEDS: HYDROcodone/APAP 10/325 MG 1 TAB TAB PO PRN ×4 (01:25→20:37)
--- NOTE | 2019-09-29 01:25 | NUR ---
PATIENT COMPLAINED OF LEG AND FINGER PAIN OF 5/10 PS. MEDICATED PATIENT WITH NORCO. WILL REASSESS. WILL CONTINUE TO MONITOR.
--- NOTE | 2019-09-29 03:38 | NUR ---
PATIENT SLEEPING COMFORTABLY. NO SIGNS OF DISTRESS. WILL CONTINUE TO MONITOR PATIENT.
[2019-09-29 04:00] VITALS: BP 124/73
--- NOTE | 2019-09-29 04:14 | NUR ---
VITAL SIGNS TAKEN. PATIENT ASLEEP. RESPIRATIONS EVEN AND UNLABORED. ON O2 @ 2 LPM VIA NC. CALL LIGHT WITHIN REACH. WILL CONTINUE TO MONITOR.
[2019-09-29] MEDS: AMPICILLIN/SULBACTAM 3 GM in NACL 0.9% 100 ML IV SCH ×4 (05:47→23:05)
--- NOTE | 2019-09-29 05:47 | NUR ---
SCHEDULED MEDICATION GIVEN. BLOOD SUGAR CHECKED REVEALED 64 MG/DL RESULT. GAVE PATIENT ORANGE JUICE MIXED WITH SUGAR. WILL CONTINUE TO MONITOR PATIENT.
[2019-09-29] MEDS: BLOOD GLUCOSE MONITORING 1 DEV DEV FS SCH ×4 (06:28→21:22)
[2019-09-29 06:42] LABS: BASOPHILS # (AUTO) 0.1 K/uL (0.00-0.22); BASOPHILS % (AUTO) 1.2 % (0.0-2.0); EOSINOPHILS # (AUTO) 0.3 K/uL (0-0.4); EOSINOPHILS % (AUTO) 3.4 % (0.0-4.0); HEMATOCRIT 32.9 % (36-48); HEMOGLOBIN 10.6 g/dL (12.0-16.0); LYMPHOCYTES # (AUTO) 2.3 K/uL (2.5-16.5); LYMPHOCYTES % (AUTO) 29.6 % (20.5-51.1); MEAN CORPUSCULAR HEMOGLOBIN 28 pg (27-31); MEAN CORPUSCULAR HGB CONC 32 g/dL (33-37); MEAN CORPUSCULAR VOLUME 88.3 fL (80-94); MONOCYTES # (AUTO) 0.4 K/uL (0.8-1.0); MONOCYTES % (AUTO) 5.7 % (1.7-9.3); NEUTROPHILS # (AUTO) 4.6 K/uL (1.8-7.7); NEUTROPHILS % (AUTO) 60.1 % (42.2-75.2); PLATELET COUNT (AUTO) 469 K/uL (140-450); RED BLOOD CELL COUNT(AUTO) 3.73 MIL/uL (4.20-5.40); RED CELL DISTRIBUTION WIDTH 14.3 % (11.6-13.7); WHITE BLOOD COUNT (AUTO) 7.7 K/uL (4.8-10.8)
[2019-09-29 06:56] LABS: ANION GAP 8.4 (8-16); CARBON DIOXIDE 33.4 mmol/L (21-32); CREATININE 1.2 mg/dL (0.6-1.3); POTASSIUM 4.8 mmol/L (3.5-5.1)
[2019-09-29 07:00] LABS: MAGNESIUM 1.9 mg/dL (1.8-2.4); PHOSPHORUS 3.9 mg/dL (2.5-4.9)
[2019-09-29] MEDS ORDERED: PROPOFOL 200 MG/20 ML VIAL IV ONE (07:21)
[2019-09-29] MEDS ORDERED: MIDAZOLAM 2 MG/2 ML VIAL ONE (07:21)
[2019-09-29] MEDS ORDERED: fentaNYL 0.05 MG/ML VIAL ONE (07:21)
--- NOTE | 2019-09-29 07:22 | NUR ---
PT IS STABLE. ENDORSED PATIENT TO DAY SHIFT NURSE FOR CONTINUITY OF CARE.
--- NOTE | 2019-09-29 07:48 | NUR ---
RECEIVED PT FROM INTERNAL AFFAIRS INVESTIGATOR NURSE. PT IS CURRENTLY AWAKE, LAYING IN BED WITH NO SIGNS OF DISTRESS NOTED. SKIN IS INTACT WITH IV PATENT ASYMPTOMATIC AND INFUSING PER ORDER. RESPIRATIONS ARE EVEN AND UNLABORED ON 2L NC WITH NO SIGNS OF DISTRESS. BED IS IN LOW SEMI-FOWLERS POSITION, SAFETY MEASURES IN PLACE AND WILL CONTINUE TO MONITOR.
[2019-09-29 08:00] VITALS: BP 158/90
[2019-09-29] MEDS: ASPIRIN 81 MG TAB.CHEW PO SCH (08:15)
[2019-09-29] MEDS: DOCUSATE SODIUM 100 MG GELCAP PO SCH ×2 (08:15→20:26)
[2019-09-29] MEDS: FAMOTIDINE 20 MG TAB PO SCH (08:15)
[2019-09-29] MEDS: DULoxetine 30 MG CAPDR PO SCH (08:16)
[2019-09-29] MEDS: LACTOBACILLUS RHAMNOSUS GG 1 EACH CAP PO SCH (08:16)
[2019-09-29] MEDS ORDERED: CRUSHER, PILL MC ONE (08:24)
--- NOTE | 2019-09-29 08:34 | NUR ---
ADMINISTERED MEDICATIONS PER ORDER AND TOLERATED WELL. PT COMPLAINS OF 5/10 ACHING PAIN. NORCO WAS ADMINISTERED. PT JUST FINISHED BREAKFAST AT BEDSIDE AND USED THE RESTROOM . PT WOULD LIKE A BANANA AND BLUEBERRY MUFFIN WITH MILK FOR A AFTERNOON SNACK. SAFETY MEASURES IN PLACE AND WILL CONTINUE OT MONITOR.
--- NOTE | 2019-09-29 10:24 | NUR ---
PT STATES THAT SHE WANTS BANANA AND BLUEBERRY MUFFIN BUT [facility] DOES NOT HAVE THOSE ITEMS. PT ASKED FOR TWO ICED TEAS FOR LUNCH INSTEAD. NO COMPLAINTS OF PAIN AT THIS TIME AND WILL CONTINUE TO MONITOR.
[2019-09-29 12:00] VITALS: BP 128/52
[2019-09-29] MEDS: INSULIN LISPRO SLIDING SCALE 100 UNITS/ML VIAL SUBQ PRN ×2 (12:04→20:36)
--- NOTE | 2019-09-29 12:22 | NUR ---
ADMINISTERED MEDICATIONS PER ORDER AND TOLERATED WELL. PT IS CURRENTLY AWAKE, ALERT AND SITTING UP IN BED. BLOOD GLUCOSE IS 220 THEREFORE 4 UNITS OF INSULIN WERE ADMINISTERED PER ORDER PARAMETERS. PT COMPLAINS OF 8/10 PAIN AND WOULD LIKE NORCO. NORCO WAS GIVEN AND WILL REASSESS PAIN IN ONE HOUR.
--- NOTE | 2019-09-29 14:50 | NUR ---
PT IS CURRENTLY AWAKE, ALERT AND SITTING AT BEDSIDE. PT WANTS SOME PUDDING. NO SIGNS OF DISTRESS NOTED. SAFETY MEASURES IN PLACE AND WILL CONTINUE OT MONITOR.
[2019-09-29 16:00] VITALS: BP 152/89
--- NOTE | 2019-09-29 17:23 | NUR ---
ADMINISTERED MEDICATIONS PER ORDER AND TOLERATED WELL. BLOOD GLUCOSE WAS 126 THEREFORE NO INSULIN WAS NEEDED. PT ASKED ABOUT NEXT PAIN MEDICATION, STILL HAS ANOTHER HOUR TO WAIT, NO COMPLAINTS AT THIS TIME AND WILL CONTINUE TO MONITOR.
--- NOTE | 2019-09-29 19:23 | NUR ---
PATIENT IN STABLE CONDITION AND WILL ENDORSE TO LANDSCAPE TECHNICIAN NURSE FOR CONTINUITY OF CARE.
--- NOTE | 2019-09-29 19:26 | NUR ---
RECEIVED REPORT FROM DAY SHIFT NURSE. PATIENT AWAKE, ALERT, ORIENTED X 4. ON O2 @ 2LC VIA NASAL CANNULA. RESPIRATIONS EVEN AND UNLABORED. SKIN IS INTACT. AMBULATES WITH CANE. NO DISTRESS NOTED. REVIEWED PLAN OF CARE TO PATIENT. VERBALIZED UNDERSTANDING. SAFETY MEASURES IN PLACE. CALL LIGHT WITHIN REACH. WILL CONTINUE TO MONITOR PATIENT.
[2019-09-29] MEDS: INSULIN LANTUS 100 UNITS/ML 10 ML VIAL SUBQ SCH (20:31)
[2019-09-29] MEDS: QUEtiapine FUMARATE 100 MG TAB PO SCH (20:37)
--- NOTE | 2019-09-29 20:37 | NUR ---
PATIENT COMPLAINED OF LEG PAIN 10/21. MEDICATED PATIENT WITH NORCO PER ORDER. WILL REASSESS AND CONTINUE TO MONITOR PATIENT.
[2019-09-29] MEDS: NACL 0.9% 1,000 ML IV SCH (23:05)
--- NOTE | 2019-09-29 23:05 | NUR ---
SCHEDULED ANTIBIOTIC MEDICATION GIVEN. REEDUCATED PATIENT TO DO NOT EAT OR DRINK ANYTHING AFTER MIDNIGHT D/T SCHEDULED BRONCHOSCOPY TOMORROW MORNING. PT VERBALIZED UNDERSTANDING. WILL CONTINUE TO MONITOR PATIENT.
[2019-09-30] VITALS: BP 147/82
--- NOTE | 2019-09-30 01:22 | NUR ---
CHECKED PATIENT. PATIENT IS SLEEPING COMFORTABLY. ON O2 @ 2LC VIA NC. RESPIRATIONS EVEN AND UNLABORED. WILL CONTINUE TO MONITOR PATIENT.
--- NOTE | 2019-09-30 03:35 | NUR ---
CHECKED PATIENT AND IS SLEEPING COMFORTABLY. ON O2 @ 2LP VIA NC, RESPIRATIONS EVEN AND UNLABORED. WILL CONTINUE TO MONITOR PATIENT.
[2019-09-30] MEDS: AMPICILLIN/SULBACTAM 3 GM in NACL 0.9% 100 ML IV SCH ×3 (05:22→17:37)
[2019-09-30] MEDS ORDERED: DEXT 5% / NACL 0.9% 500 ML IV SCH (05:30)
[2019-09-30] MEDS: BLOOD GLUCOSE MONITORING 1 DEV DEV FS SCH ×4 (06:22→20:50)
--- NOTE | 2019-09-30 06:22 | NUR ---
CHECKED PATIENT'S BLOOD SUGAR LEVEL, REVEALED 74 MG/DL. NOTIFIED MD. MD ORDERED D5 NACL 0.9 500 ML. PATIENT IS ON NPO AFTER MIDNIGHT FOR BRONCHOSCOPY SCHEDULED TODAY. WILL CONTINUE TO MONITOR PATIENT.
[2019-09-30 06:46] LABS: BASOPHILS % (AUTO) 0.3 % (0.0-2.0); EOSINOPHILS # (AUTO) 0.3 K/uL (0-0.4); EOSINOPHILS % (AUTO) 2.5 % (0.0-4.0); HEMATOCRIT 30.4 % (36-48); HEMOGLOBIN 9.8 g/dL (12.0-16.0); LYMPHOCYTES % (AUTO) 16.8 % (20.5-51.1); MEAN CORPUSCULAR HEMOGLOBIN 29 pg (27-31); MEAN CORPUSCULAR HGB CONC 32 g/dL (33-37); MEAN CORPUSCULAR VOLUME 88.3 fL (80-94); MONOCYTES # (AUTO) 0.6 K/uL (0.8-1.0); MONOCYTES % (AUTO) 5.4 % (1.7-9.3); NEUTROPHILS # (AUTO) 8.9 K/uL (1.8-7.7); PLATELET COUNT (AUTO) 441 K/uL (140-450); RED BLOOD CELL COUNT(AUTO) 3.44 MIL/uL (4.20-5.40); WHITE BLOOD COUNT (AUTO) 11.9 K/uL (4.8-10.8)
--- NOTE | 2019-09-30 07:05 | NUR ---
RECEIVED REPORT FROM STOCK PREPARER RNMEMO. PATIENT AWAKE, ALERT, ORIENTED X 4. ON O2 @ 2LC VIA NASAL CANNULA WITH O2 STAT OF 95%. RESPIRATIONS EVEN AND UNLABORED. SKIN IS INTACT. AMBULATES WITH CANE. NO DISTRESS NOTED. IV IS ON THE RAC 22G WITH D5NS RUNNING AT 50ML/HR, PATENT AND INTACT. REVIEWED PLAN OF CARE TO PATIENT. VERBALIZED UNDERSTANDING. SAFETY MEASURES IN PLACE. CALL LIGHT WITHIN REACH. WILL CONTINUE TO MONITOR PATIENT.
--- NOTE | 2019-09-30 07:18 | NUR ---
PATIENT IN STABLE CONDITION. ENDORSED PATIENT TO DAY SHIFT NURSE FOR CONTINUITY OF CARE.
[2019-09-30 07:24] LABS: ANION GAP 7.7 (8-16); CARBON DIOXIDE 31.7 mmol/L (21-32); CREATININE 1.3 mg/dL (0.6-1.3); POTASSIUM 4.4 mmol/L (3.5-5.1)
[2019-09-30] MEDS ORDERED: DEXT 5% /NACL 0.9% 1,000 ML IV SCH (07:27)
[2019-09-30 08:00] VITALS: BP 123/67
[2019-09-30] MEDS ORDERED: MAGNESIUM CITRATE 300 ML BTL PO SCH (08:00)
[2019-09-30] MEDS ORDERED: ROCURONIUM 50 MG/5 ML VIAL IV ONE (08:25)
[2019-09-30] MEDS ORDERED: NEOSTIGMINE 1:1000 10 MG/10 ML VIAL ONE (08:25)
[2019-09-30] MEDS ORDERED: DEXAMETHASONE 4 MG/ML VIAL ONE (08:25)
[2019-09-30] MEDS ORDERED: ONDANSETRON 4 MG/2 ML VIAL ONE (08:25)
[2019-09-30] MEDS ORDERED: PROPOFOL 200 MG/20 ML VIAL IV ONE (08:25)
[2019-09-30] MEDS ORDERED: GLYCOPYRROLATE 0.2 MG/ML VIAL ONE (08:25)
[2019-09-30] MEDS ORDERED: SEVOFLURANE 250 ML BTL INH ONE (08:25)
[2019-09-30] MEDS ORDERED: fentaNYL 0.05 MG/ML VIAL ONE (08:25)
--- NOTE | 2019-09-30 08:35 | NUR ---
PT. IS OFF THE UNIT FOR BRONCHOSCOPY PROCEDURE. NO SIGNS OF DISTRESS NOTED. WILL CONTINUE TO MONITOR.
--- NOTE | 2019-09-30 10:10 | NUR ---
RECEIVED PT. FROM OR NURSETORIBIO. PT. IS AWAKE AND IN BED. NO SIGNS OF DISTRESS NOTED. V/S TAKEN BP 113/64, HR 74, O2 STAT 99%, TEMP 98.3, PT. VERBALIZES NO PAIN. WILL CONTINUE TO MONITOR.
--- NOTE | 2019-09-30 10:15 | NUR ---
MORNING MEDICATIONS GIVEN. NO SIGNS OF DISTRESS NOTED. WILL CONTINUE TO MONITOR.
[2019-09-30] MEDS: DULoxetine 30 MG CAPDR PO SCH (10:27)
[2019-09-30] MEDS: DOCUSATE SODIUM 100 MG GELCAP PO SCH ×2 (10:28→20:49)
[2019-09-30] MEDS: LACTOBACILLUS RHAMNOSUS GG 1 EACH CAP PO SCH (10:29)
[2019-09-30] MEDS: traMADol 50 MG TAB PO PRN ×2 (10:32→20:56)
[2019-09-30] MEDS: ASPIRIN 81 MG TAB.CHEW PO SCH (10:33)
[2019-09-30] MEDS: NICOTINE TRANSD SYS 7 MG/24 HR PATCH TD SCH (10:34)
[2019-09-30] MEDS: FAMOTIDINE 20 MG TAB PO SCH (10:34)
[2019-09-30] MEDS: HYDROcodone/APAP 10/325 MG 1 TAB TAB PO PRN ×2 (10:41→17:37)
--- NOTE | 2019-09-30 11:45 | NUR ---
BLOOD GLUCOSE CHECK WITH VALUE OF 199. INSULIN COVERAGE NEEDED. DR. MORGAN BY THE BEDSIDE AND EXPLAINED RESULTS OF PROCEDURE AND PLAN OF CARE WITH PATIENT. NO SIGNS OF DISTRESS NOTED. WILL CONTINUE TO MONITOR.
[2019-09-30] MEDS: NACL 0.9% 1,000 ML IV SCH (12:03)
[2019-09-30] MEDS: INSULIN LISPRO SLIDING SCALE 100 UNITS/ML VIAL SUBQ PRN ×3 (12:08→21:00)
[2019-09-30 16:00] VITALS: BP 134/76
--- NOTE | 2019-09-30 16:33 | NUR ---
8 UNITS OF HUMALOG GIVEN FOR BLOOD GLUCOSE OF 308. NO SIGNS OF DISTRESS NOTED. WILL CONTINUE TO MONITOR.
--- NOTE | 2019-09-30 17:25 | NUR ---
PT. COMPLAINS OF BACK PAIN 10/21. WILL MEDICATE WITH NORCO. NO SIGNS OF DISTRESS. WILL CONTINUE TO MONITOR.
--- NOTE | 2019-09-30 17:30 | NUR ---
AFTERNOON MEDICATIONS GIVEN. BP 134/76, HR 111. NO SIGNS OF DISTRESS NOTED. WILL CONTINUE TO MONITOR.
--- NOTE | 2019-09-30 19:10 | NUR ---
ENDORSED TO RELISH MAKER RNBETTY, FOR CONTINUITY OF CARE.
--- NOTE | 2019-09-30 19:11 | NUR ---
RECD. RESTING IN BED, AWAKE, A/OX4. RESPIRATION EVEN AND UNLABORED. ON 02 AT 2 LITERS N/C, SATURATION -96%. SAFETY MEASURES ENFORCED. BED IN THE LOWEST POSITION, CALL LIGHT IN REACH. IV OF NS AT 50 ML/HR INFUSING, RIGHT AC, G20.INSTRUCTED TO CALL NURSE WHEN NEEDING HELP IN GETTING OF BED AND AMBULATING TO BR. PLAN OF CARE FOR THE SHIFT DISCUSSED. VERBALIZED UNDERSTANDING. DENIES PAIN 0/10.
--- NOTE | 2019-09-30 19:50 | NUR ---
RECEIVED PATIENT ON 2L NASAL CANNULA, PULSE OX SAT 98%. PT DENIES SOB AT THIS TIME; PRN BREATHING TX NOT INDICATED. PT MADE AWARE OF ORDERED MEDICATION FREQUENCY AND INSTRUCTED TO CALL NEEDED FOR SOB. NO ACUTE RESPIRATORY DISTRESS NOTED AT THIS TIME. WILL CONTINUE TO MONITOR.
--- NOTE | 2019-09-30 20:00 | NUR ---
Patient's Plan of Care was discussed and reviewed with JANITORIAL ACCOUNT MANAGER: BETTY MCLEOD
[2019-09-30] MEDS: QUEtiapine FUMARATE 100 MG TAB PO SCH (20:48)
--- NOTE | 2019-09-30 20:50 | NUR ---
BS CHECKED -402. INFORMED DR. ROMANO, FOLLOW SLIDING SCALE FOR 350-400 BLOOD SUGAR.
[2019-09-30] MEDS: INSULIN LANTUS 100 UNITS/ML 10 ML VIAL SUBQ SCH (21:04)
--- NOTE | 2019-09-30 22:00 | NUR ---
AMBULAATED TO BR TO VOID, BACK TO BED AFTER VOIDING, SAFETY MAINTAINED.
[2019-10-01] VITALS: BP 150/86
--- NOTE | 2019-10-01 | NUR ---
SLEEPING COMFORTABLY IN BED.
[2019-10-01] MEDS: HYDROcodone/APAP 10/325 MG 1 TAB TAB PO PRN ×4 (00:33→21:20)
[2019-10-01] MEDS: AMPICILLIN/SULBACTAM 3 GM in NACL 0.9% 100 ML IV SCH ×4 (00:44→17:14)
--- NOTE | 2019-10-01 02:00 | NUR ---
SLEEPING ON HER RIGHT SIDE, COMFORTABLE.
--- NOTE | 2019-10-01 04:00 | NUR ---
ASSISTED OUT OF BED TO GO TO BR TO VOID. BACK TO BED AFTER VOIDING. SLEEP AGAIN.
[2019-10-01] MEDS: BLOOD GLUCOSE MONITORING 1 DEV DEV FS SCH ×4 (06:17→20:52)
[2019-10-01] MEDS: INSULIN LISPRO SLIDING SCALE 100 UNITS/ML VIAL SUBQ PRN ×4 (06:20→21:04)
[2019-10-01 06:29] LABS: ANION GAP 8.1 (8-16); CARBON DIOXIDE 30.4 mmol/L (21-32); CREATININE 1.4 mg/dL (0.6-1.3); POTASSIUM 4.5 mmol/L (3.5-5.1)
[2019-10-01 06:47] LABS: BASOPHILS # (AUTO) 0.1 K/uL (0.00-0.22); BASOPHILS % (AUTO) 0.5 % (0.0-2.0); EOSINOPHILS % (AUTO) 0.1 % (0.0-4.0); HEMATOCRIT 29.8 % (36-48); HEMOGLOBIN 9.7 g/dL (12.0-16.0); LYMPHOCYTES # (AUTO) 0.9 K/uL (2.5-16.5); LYMPHOCYTES % (AUTO) 7.9 % (20.5-51.1); MEAN CORPUSCULAR HEMOGLOBIN 29 pg (27-31); MEAN CORPUSCULAR HGB CONC 33 g/dL (33-37); MEAN CORPUSCULAR VOLUME 88.5 fL (80-94); MONOCYTES # (AUTO) 0.3 K/uL (0.8-1.0); MONOCYTES % (AUTO) 2.4 % (1.7-9.3); NEUTROPHILS # (AUTO) 10.5 K/uL (1.8-7.7); NEUTROPHILS % (AUTO) 89.1 % (42.2-75.2); PLATELET COUNT (AUTO) 393 K/uL (140-450); RED BLOOD CELL COUNT(AUTO) 3.37 MIL/uL (4.20-5.40); WHITE BLOOD COUNT (AUTO) 11.8 K/uL (4.8-10.8)
[2019-10-01] MEDS: NACL 0.9% 1,000 ML IV SCH ×2 (07:00→12:42)
--- NOTE | 2019-10-01 07:15 | NUR ---
RECEIVED REPORT FROM GRINDING ROOM SUPERVISOR RNBETTY, FOR CONTINUITY OF CARE. PATIENT AWAKE, ALERT, ORIENTED X 4. ON O2 @ 2LC VIA NASAL CANNULA WITH O2 STAT OF 95%. RESPIRATIONS EVEN AND UNLABORED. SKIN IS INTACT. AMBULATES WITH CANE. NO DISTRESS NOTED. IV IS ON THE RAC 22G WITH NS RUNNING AT 50ML/HR, PATENT AND INTACT. REVIEWED PLAN OF CARE TO PATIENT. VERBALIZED UNDERSTANDING. SAFETY MEASURES IN PLACE. CALL LIGHT WITHIN REACH. WILL CONTINUE TO MONITOR PATIENT.
--- NOTE | 2019-10-01 07:15 | NUR ---
CONDITION REMAIN STABLE. ENDORSED TO AM SHIFT NURSE FOR CONTINUITY OF CARE.
[2019-10-01] MEDS: DOCUSATE SODIUM 100 MG GELCAP PO SCH ×2 (09:00→20:51)
[2019-10-01] MEDS: NICOTINE TRANSD SYS 7 MG/24 HR PATCH TD SCH (09:04)
[2019-10-01] MEDS: FAMOTIDINE 20 MG TAB PO SCH (09:05)
[2019-10-01] MEDS: DULoxetine 30 MG CAPDR PO SCH (09:05)
[2019-10-01] MEDS: LACTOBACILLUS RHAMNOSUS GG 1 EACH CAP PO SCH (09:05)
--- NOTE | 2019-10-01 09:05 | NUR ---
MORNING MEDICATIONS GIVEN. NO SIGNS OF DISTRESS NOTED. PT. COMPLAINS OF PAIN 12/21. WILL MEDICATE WITH NORCO PRN.
[2019-10-01] MEDS: ASPIRIN 81 MG TAB.CHEW PO SCH (09:06)
--- NOTE | 2019-10-01 09:06 | NUR ---
NORCO GIVEN FOR BACK AND LEG PAIN 12/21. BP 128/77, HR 92. NO SIGNS OF DISTRESS NOTED. WILL CONTINUE TO MONITOR.
--- NOTE | 2019-10-01 11:45 | NUR ---
2 UNITS OF INSULIN GIVEN FOR BLOOD GLUCOSE OF 199. NO SIGNS OF DISTRESS NOTED. WILL CONTINUE TO MONITOR.
[2019-10-01] MEDS: traMADol 50 MG TAB PO PRN (12:40)
[2019-10-01 13:00] VITALS: BP 156/90
--- NOTE | 2019-10-01 14:24 | NUR ---
10/01/19 RD FOLLOW UP COMPLETED PLEASE REFER TO NUTRITION ASSESSMENT UNDER CARE ACTIVITY FOR ESTIMATED NUTRITIONAL NEEDS. 1. RECOMMEND MECHANICAL SOFT CCHO 60GM DIET TOLERATED 2. RD PROVIDED ADDITIONAL NUTRITION EDUCATION ON DIABETES AND READING NUTRITION LABELS 3. RD TO FOLLOW-UP 3-5 DAYS, MODERATE RISK CASA HANNA, RD
--- NOTE | 2019-10-01 17:00 | NUR ---
AFTERNOON MEDICATIONS GIVEN. BLOOD GLUCOSE CHECK WITH VALUE OF 230. INSULIN COVERAGE NEEDED. WILL CONTINUE TO MONITOR.
--- NOTE | 2019-10-01 17:20 | NUR ---
IV SITE INFILTRATED. SPOKE TO DR. TANG OF POSSIBLE PICC LINE INSERTION. DR. TANG AGREES. PT. HAS SIGNED CONSENT, CHARGE NURSE IS INFORMED. RISK AND BENEFITS DISCUSSED WITH PT. WILL CONTINUE TO MONITOR.
--- NOTE | 2019-10-01 17:30 | NUR ---
4 UNITS OF INSULIN GIVEN FOR BLOOD GLUCOSE OF 230. NO SIGNS OF DISTRESS NOTED. NORCO GIVEN FOR BACK AND LEG PAIN OF 8/10. BP 134/79, HR 83. WILL CONTINUE TO MONITOR.
--- NOTE | 2019-10-01 18:51 | NUR ---
CONTACTED PICC LINE SERVICE, NO ANSWER. VOICEMAIL MESSAGE LEFT. AWAITING FOR CALL BACK. SUKHDEEP MADE AWARE.
--- NOTE | 2019-10-01 19:05 | NUR ---
RECD. SITTING ON BED, AWAKE, A/OX4. RESPIRATION EVEN AND UNLABORED. ON 02 AT 2 LITERS VIA N/C. AWAITING FOR THE PICC LINE NURSE TO DO THE PICC LINE INSERTION TONIGHT. PLAN OF CARE FOR THE SHIFT DISCUSSED. VERBALIZED UNDERSTANDING. DENIES PAIN 0/10.
--- NOTE | 2019-10-01 19:05 | NUR ---
ENDORSED TO BUS MONITOR NURSEBETTY, FOR CONTINUITY OF CARE.
--- NOTE | 2019-10-01 20:10 | NUR ---
PICC LINE NURSE PHONE GIVEN BY [employer] TO NURSE MICROPHONE BOOM OPERATOR JOBY, WILL FOLLOW UP PICC LINE INSERTION.
[2019-10-01] MEDS: QUEtiapine FUMARATE 100 MG TAB PO SCH (20:51)
[2019-10-01] MEDS: INSULIN LANTUS 100 UNITS/ML 10 ML VIAL SUBQ SCH (21:06)
--- NOTE | 2019-10-01 21:30 | NUR ---
PICC LINE NURSE EZRA CAME TO DO PICC LINE PLACEMENT.
--- NOTE | 2019-10-01 22:00 | NUR ---
PICC LINE INSERTION DONE. X-RAY ORDERED BY .
[2019-10-02] VITALS: BP 100/54
--- NOTE | 2019-10-02 | NUR ---
SLEEPING COMFORTABLY IN BED.
[2019-10-02] MEDS: AMPICILLIN/SULBACTAM 3 GM in NACL 0.9% 100 ML IV SCH ×3 (01:21→11:33)
--- NOTE | 2019-10-02 04:00 | NUR ---
AMBULATED TO BR TO VOID, BACK TO BED AFTER VOIDING, WENT BACK TO SLEEP.
[2019-10-02] MEDS: NACL 0.9% 1,000 ML IV SCH (06:09)
--- NOTE | 2019-10-02 07:04 | NUR ---
ABLE TO SLEEP WELL. CONDITION REMAIN STABLE. ENDORSED TO AM SHIFT NURSE FOR CONTINUITY OF CARE.
--- NOTE | 2019-10-02 07:05 | NUR ---
RECEIVED REPORT FROM NIGHT NURSE, PT IS AWAKE AND ALERT, AMBULATORY AND ON ROOM AIR. PT DENIES PAIN AND NO DISTRESS NOTED. IV INTACT AND PATENT. SAFETY MEASURES IN PLACE, CALL LIGHT WITHIN REACH. WILL CONTINUE TO MONITOR.
[2019-10-02] MEDS: BLOOD GLUCOSE MONITORING 1 DEV DEV FS SCH ×2 (07:12→11:48)
[2019-10-02 07:14] LABS: ANION GAP 11.5 (8-16); CARBON DIOXIDE 29.5 mmol/L (21-32); CREATININE 1.3 mg/dL (0.6-1.3)
[2019-10-02 07:20] LABS: BASOPHILS # (AUTO) 0.1 K/uL (0.00-0.22); BASOPHILS % (AUTO) 0.8 % (0.0-2.0); EOSINOPHILS # (AUTO) 0.4 K/uL (0-0.4); EOSINOPHILS % (AUTO) 4.1 % (0.0-4.0); HEMATOCRIT 27.3 % (36-48); HEMOGLOBIN 8.8 g/dL (12.0-16.0); LYMPHOCYTES % (AUTO) 31.9 % (20.5-51.1); MEAN CORPUSCULAR HEMOGLOBIN 29 pg (27-31); MEAN CORPUSCULAR HGB CONC 32 g/dL (33-37); MEAN CORPUSCULAR VOLUME 89.2 fL (80-94); MONOCYTES # (AUTO) 0.4 K/uL (0.8-1.0); MONOCYTES % (AUTO) 4.4 % (1.7-9.3); NEUTROPHILS # (AUTO) 5.5 K/uL (1.8-7.7); NEUTROPHILS % (AUTO) 58.8 % (42.2-75.2); PLATELET COUNT (AUTO) 365 K/uL (140-450); RED BLOOD CELL COUNT(AUTO) 3.07 MIL/uL (4.20-5.40); WHITE BLOOD COUNT (AUTO) 9.4 K/uL (4.8-10.8)
[2019-10-02 08:00] VITALS: BP 114/60
[2019-10-02] MEDS: ASPIRIN 81 MG TAB.CHEW PO SCH (08:28)
[2019-10-02] MEDS: LACTOBACILLUS RHAMNOSUS GG 1 EACH CAP PO SCH (08:28)
[2019-10-02] MEDS: DULoxetine 30 MG CAPDR PO SCH (08:29)
[2019-10-02] MEDS: FAMOTIDINE 20 MG TAB PO SCH (08:29)
[2019-10-02] MEDS: NICOTINE TRANSD SYS 7 MG/24 HR PATCH TD SCH ×2 (08:36→10:18)
[2019-10-02] MEDS: HYDROcodone/APAP 10/325 MG 1 TAB TAB PO PRN (08:39)
[2019-10-02] MEDS: DOCUSATE SODIUM 100 MG GELCAP PO SCH (08:42)
--- NOTE | 2019-10-02 09:00 | NUR ---
PT COMPLAINS OF PAIN ON SHOULDER BLADES AND LOW BACK 6/10 MEDICATION DUE GIVEN. SAFETY MEASURES IN PLACE CALL LIGHT WITHIN REACH. WILL CONTINUE TO MONITOR.
--- NOTE | 2019-10-02 11:30 | NUR ---
MEDICATION DUE GIVEN VITAL SIGN CHECKED AND BLOOD SUGAR CHECKED 242MG/DL. NO DISTRESS NOTED AND DENIES PAIN. SAFETY MEASURES IN PLACE CALL LIGHT WITHIN REACH.
[2019-10-02] MEDS: INSULIN LISPRO SLIDING SCALE 100 UNITS/ML VIAL SUBQ PRN (11:50)
[2019-10-02] MEDS ORDERED: LANTUS SUBQ (13:26)
[2019-10-02] MEDS ORDERED: [UNRECOGNIZED DRUG - CODE] MC (13:26)
[2019-10-02] MEDS ORDERED: QUET300T26 PO (13:26)
[2019-10-02] MEDS ORDERED: DULO30EC PO (13:26)
[2019-10-02] MEDS ORDERED: HUMSLIDE SUBQ (13:26)
[2019-10-02] MEDS ORDERED: AMOX-999 PO (13:26)
[2019-10-02] MEDS ORDERED: LACT1CAP21 PO (13:26)
[2019-10-02] MEDS ORDERED: LAM200 PO (13:26)
[2019-10-02] MEDS ORDERED: LANC-947 MC (13:26)
[2019-10-02] MEDS ORDERED: LANC1COM MC (13:26)
--- NOTE | 2019-10-02 17:00 | NUR ---
DISCHARGE INSTRUCTION PROVIDED TO THE PATIENT AT BEDSIDE, EDUCATED PT TO FOLLOW UP WITH MD SAMMY C. MEDICATION REGIMENS, SIDE EFFECTS AND BLOOD GLUCOSE MONITORING, AND TO SEEK MEDICAL HELP IN CASE OF MEDICAL EMERGENCY. ANSWERED PT QUESTIONS AND VERBALIZES UNDERSTANDING. REMOVED ALL ID BANDS, IV INTACT AND COMPLETED. NO BLEEDING ON IV SITES. CHANGED PT TO OWN CLOTHES DC PACKET PROVIDED PT TOOK ALL HIS BELONGINGS. ESCORTED PT TO THE FRONT LOBBY. PT IS DISCHARGE TO HOME AND PT IS STABLE.
== END 2019-10-02 17:00 | disposition home or self-care (01) | DRG 137 ==
LOC: MED 19:58 → MTU 09-23 00:58 → EEVIPCON 09-23 00:58 → MTU 09-26 10:28
PROVIDERS: ADMIT General Practice; ATTEND General Practice
PROC: 0B9C8ZX Drainage of Right Upper Lung Lobe, Via Natural or Artificial Opening Endoscopic, Diagnostic (ICD-10-PCS; principal; 2019-09-30 09:00)
PROC: 02HV33Z Insertion of Infusion Device into Superior Vena Cava, Percutaneous Approach (ICD-10-PCS; 2019-10-01)
PROC: B548ZZA Ultrasonography of Superior Vena Cava, Guidance (ICD-10-PCS; 2019-10-01)
DX: J85.1 Abscess of lung with pneumonia (principal); N17.0 Acute kidney failure with tubular necrosis; E11.00 Type 2 diabetes mellitus with hyperosmolarity without nonketotic hyperglycemic-hyperosmolar coma (NKHHC); E43 Unspecified severe protein-calorie malnutrition; E11.21 Type 2 diabetes mellitus with diabetic nephropathy; E11.40 Type 2 diabetes mellitus with diabetic neuropathy, unspecified; E87.1 Hypo-osmolality and hyponatremia; B37.3 Candidiasis of vulva and vagina; E86.1 Hypovolemia; F17.200 Nicotine dependence, unspecified, uncomplicated; N39.0 Urinary tract infection, site not specified; Z68.30 Body mass index [BMI] 30.0-30.9, adult; F31.9 Bipolar disorder, unspecified; E66.9 Obesity, unspecified; M25.551 Pain in right hip; Z03.818 Encounter for observation for suspected exposure to other biological agents ruled out; B96.20 Unspecified Escherichia coli [E. coli] as the cause of diseases classified elsewhere
CPT/HCPCS: 36415; 71045; 71260; 76770; 80048; 80053; 81001; 82948; 83036; 83690; 83735; 83880; 83930; 84100; 84443; 84484; 85025; 85610; 85730; 87040; 87070; 87075; 87081; 87086; 87116; 87186; 87190; 87205; 87206; 87804; 88305; 93005; 96361; 96365; 97116; 97161-GP; 99285; J0295; J0696; J1100; J1450; J1644; J1815; J2250; J2405; J2543; J2704; J2710; J3010; J3490; J7030; J7042; J7060; Q0092; Q9967; U0003-CS

== ENCOUNTER 2020-05-08 15:15 | Emergency (ER) | payer MEDICAID, SELFPAY ==
[~2020-05-08] VITALS: Ht 167.6 cm; Wt 70.3 kg
[~2020-05-08 15:15] MED LIST: ASPI-1884 PO; CLIN300C2 PO; DULO30EC PO; INSU100I7 SQ; LAM25 PO; LANC1COM6 MC; LISI-420 PO; SULF-59 PO
[2020-05-08 16:09] VITALS: BP 96/70
[2020-05-08] MEDS ORDERED: VANCOMYCIN 1,000 MG in DEXTROSE 5% 250 ML IV ONE (16:35)
[2020-05-08 17:14] LABS: BASOPHILS # (AUTO) 0.1 K/uL (0.00-0.22); BASOPHILS % (AUTO) 1.1 % (0.0-2.0); EOSINOPHILS # (AUTO) 0.2 K/uL (0-0.4); EOSINOPHILS % (AUTO) 2.2 % (0.0-4.0); HEMATOCRIT 30.4 % (36-48); HEMOGLOBIN 9.9 g/dL (12.0-16.0); LYMPHOCYTES # (AUTO) 1.3 K/uL (2.5-16.5); LYMPHOCYTES % (AUTO) 14.1 % (20.5-51.1); MEAN CORPUSCULAR HEMOGLOBIN 29 pg (27-31); MEAN CORPUSCULAR HGB CONC 33 g/dL (33-37); MEAN CORPUSCULAR VOLUME 87.2 fL (80-94); MONOCYTES # (AUTO) 0.3 K/uL (0.8-1.0); MONOCYTES % (AUTO) 3.4 % (1.7-9.3); NEUTROPHILS # (AUTO) 7.5 K/uL (1.8-7.7); NEUTROPHILS % (AUTO) 79.2 % (42.2-75.2); PLATELET COUNT (AUTO) 293 K/uL (140-450); RED BLOOD CELL COUNT(AUTO) 3.49 MIL/uL (4.20-5.40); RED CELL DISTRIBUTION WIDTH 16.4 % (11.6-13.7); WHITE BLOOD COUNT (AUTO) 9.5 K/uL (4.8-10.8)
[2020-05-08 17:38] LABS: ALBUMIN 2.9 g/dL (3.4-5.0); ANION GAP 11.7 (8-16); CARBON DIOXIDE 27.8 mmol/L (21-32); CREATININE 1.5 mg/dL (0.6-1.3); POTASSIUM 4.5 mmol/L (3.5-5.1); TOTAL BILIRUBIN 0.3 mg/dL (0.0-1.0)
[2020-05-08 19:30] VITALS: BP 105/72
--- NOTE | 2020-05-08 19:30 | NUR ---
Patient discharged with v/s stable. Written and verbal after care instructions given and explained. Patient alert, oriented and verbalized understanding of instructions. Ambulatory with steady gait. All questions addressed prior to discharge. ID band removed. Patient advised to follow up with PMD. Rx of KEFLEX,BACTRIM,ZOFRAN,ACETA 500MG. given. Patient educated on indication of medication including possible reaction and side effects. Opportunity to ask questions provided and answered.
--- NOTE | 2020-05-08 19:33 | NUR ---
SEEN AND EXAMINED BY PA WITH ORDERS, CARRIED OUT
== END 2020-05-08 19:45 | disposition home or self-care (01) ==
LOC: MED 15:15
DX: L03.115 Cellulitis of right lower limb (principal); L08.9 Local infection of the skin and subcutaneous tissue, unspecified; E11.9 Type 2 diabetes mellitus without complications; Z79.899 Other long term (current) drug therapy; Z79.2 Long term (current) use of antibiotics; Z79.82 Long term (current) use of aspirin
CPT/HCPCS: 36415; 73630; 80053; 85025; 93971; 99285